=== PATIENT | female | born 1980 | race Caucasian/White ===

== ENCOUNTER 2016-04-10 10:48 | Emergency (ER) | payer MEDICAID ==
--- NOTE | 2016-04-10 10:56 | ER Document Report ---
ED Medical Screen (RME) - General Chief Complaint: Back Pain Stated Complaint: BACK PAIN Time seen by provider: 10:53 Mode of Arrival: Wheelchair Information source: Patient Notes: 36-year-old female presents to ED for low back pain. She states she has a history of spina bifida and she's having back pain and pelvic pain started this morning. She says she normally has some pain but this is totally different and she cannot move her legs like she supposed to. She states she supposed to go to a specialist at [facility] for her spina bifida. She states she's been on Xanax for over 6 years and she has not had any since the end of February and she just feels horrible. Last menstrual period 04/10/2016 I have greeted and performed a rapid initial assessment of this patient. A comprehensive ED assessment and evaluation of the patient, analysis of test results and completion of medical decision making process will be conducted by an additional ED providers. TRAVEL OUTSIDE OF THE [place] IN LAST 30 DAYS: No - Related Data Allergies/Adverse Reactions: No Known Allergies Allergy (Verified 06/04/14 12:44) Past Medical History Neurological Medical History: Reports: Hx Migraine Renal/ Medical History: Reports: Hx Ovarian Cysts Psychiatric Medical History: Reports: Hx Anxiety Past Surgical History: Reports: Hx Vascular Surgery - brain angiogram - Immunizations Immunizations up to date: Yes Hx Diphtheria, Pertussis, Tetanus Vaccination: Yes - 2013 Physical Exam - Vital signs Vitals: Temp Pulse Resp BP Pulse Ox 98.4 F 92 20 144/103 H 96 04/10/16 10:52 04/10/16 10:52 04/10/16 10:52 04/10/16 10:52 04/10/16 10:52 Course - Vital Signs Vital signs: Temp Pulse Resp BP Pulse Ox 98.4 F 92 20 144/103 H 96 04/10/16 10:52 04/10/16 10:52 04/10/16 10:52 04/10/16 10:52 04/10/16 10:52
[2016-04-10] MEDS ORDERED: OXYCODONE-ACETAMINOPHEN 5-325 MG TABLET PO ONE (10:58)
--- NOTE | 2016-04-10 11:33 | ER Document Report ---
ED General - General Chief Complaint: Back Pain Stated Complaint: BACK PAIN Time seen by provider: 11:31 Mode of Arrival: Wheelchair Notes: This is a 36-year-old female with a history of spina bifida and spinal cyst that presents today with hip and bilateral leg pain. She states that at 0545 this morning the patient woke up with this pain. She says that the pain starts in the hip and shoots down to the ankles and both legs. 10 out of 10 pain constant. She was found to have a meningococcal cyst [address] José that measured 4.8 cm. She denies bowel or bladder dysfunction or any injury. She sees Dr. Shukla, who is a surgeon and Dr. Moss who is her primary care. She sees a spinal surgeon in 2 weeks at [facility] for evaluation of her spinal cyst. She is currently on her period. TRAVEL OUTSIDE OF THE [place] IN LAST 30 DAYS: No - Related Data Allergies/Adverse Reactions: No Known Allergies Allergy (Verified 04/10/16 10:56) Home Medications: Current Home Medications Alprazolam [Alprazolam] 2 mg PO DAILY 04/10/16 [History] Tramadol HCl [Tramadol HCl] 100 mg PO Q6H PRN MDD 6 per day 04/10/16 [History] Past Medical History - General Information source: Patient - Social History Smoking Status: Never Smoker Chew tobacco use (# tins/day): No Frequency of alcohol use: None Drug Abuse: None Family History: Arthritis, CVA, Hypertension, Malignancy Patient has suicidal ideation: No Patient has homicidal ideation: No Neurological Medical History: Reports: Hx Migraine Renal/ Medical History: Reports: Hx Ovarian Cysts. Denies: Hx Peritoneal Dialysis Psychiatric Medical History: Reports: Hx Anxiety Past Surgical History: Reports: Hx Vascular Surgery - brain angiogram - Immunizations Immunizations up to date: Yes Hx Diphtheria, Pertussis, Tetanus Vaccination: Yes - 2013 Review of Systems - Review of Systems Constitutional: No symptoms reported. denies: Chills, Fever EENT: No symptoms reported Cardiovascular: No symptoms reported Respiratory: No symptoms reported Gastrointestinal: No symptoms reported Genitourinary: No symptoms reported - She urinated this morning prior to arrival. Denies any accidents or bladder retention. Female Genitourinary: Last menstrual period - Today is day 1 Musculoskeletal: See HPI Skin: No symptoms reported Hematologic/Lymphatic: No symptoms reported Neurological/Psychological: No symptoms reported Physical Exam - Vital signs Vitals: Temp Pulse Resp BP Pulse Ox 98.4 F 92 20 144/103 H 96 04/10/16 10:52 04/10/16 10:52 04/10/16 10:52 04/10/16 10:52 04/10/16 10:52 - General General appearance: Anxious In distress: None - HEENT Head: Normocephalic, Atraumatic - Respiratory Respiratory status: No respiratory distress Chest status: Nontender Breath sounds: Normal. No: Rales, Rhonchi, Stridor, Wheezing - Cardiovascular Rhythm: Regular Heart sounds: Normal auscultation - Abdominal Inspection: Normal Bowel sounds: Normal Tenderness: Tender - Diffuse abdominal discomfort. Denies pain. - Rectal Tenderness: No Hemorrhoids: None - No external or internal hemorrhoids felt or seen on examination Notes: Patient has normal rectal tone. She was able to squeeze my fingers. Exam was chaperoned by her nurse. - Back Back: Normal. No: CVA tenderness - Extremities General upper extremity: Normal inspection, Normal ROM General lower extremity: Normal inspection, Nontender, Normal ROM, Normal strength - Neurological Cognition: Normal. No: Confused Sensory: Normal Knee - Reflex grade: 3 = Increased - Patient does not have any clonus bilaterally. +3 patellar reflex bilaterally. - Psychological Associated symptoms: Normal affect, Normal mood - Skin Skin Temperature: Warm Skin Moisture: Dry Skin Color: Normal Course - Re-evaluation Re-evalutation: 04/10/16 12:45 Rectal exam was done and patient had normal rectal tone. Examination was chaperoned by her nurse. 04/10/16 13:26 Dr. Moss was consulted. He stated that the patient was last seen by him in . She complained of anxiety and low back pain during that visit and was given tramadol. 04/10/16 15:32 Imaging studies from [facility] was obtained. MRI lumbar spine without contrast conducted on 09/16/2015 at [facility]. Dr. 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 2) minimal lumbar spondylosis 3) moderately to severely limited study due to excessive motion. 04/10/16 16:46 Imaging was shared with the patient. She was given multiple opportunities to ask questions. Patient asked that I refill her Xanax medication. I told her that I would not since she has a chronic back pain problem and anxiety. She was advised to follow-up with primary care physician. She stated that she has a appointment at [facility] concerning her back. - Vital Signs Vital signs: Temp Pulse Resp BP Pulse Ox 98.1 F 73 20 123/68 97 04/10/16 17:09 04/10/16 17:09 04/10/16 11:10 04/10/16 17:09 04/10/16 17:09 - Laboratory Result Diagrams: 04/10/16 12:00 04/10/16 12:00 Laboratory results interpreted by me: 04/10/16 04/10/16 12:00 12:00 WBC 10.6 H RDW 14.8 H Chloride 108 H Discharge - Discharge Clinical Impression: Back pain Qualifiers: Back pain location: low back pain Chronicity: chronic Back pain laterality: bilateral Sciatica presence: unspecified whether sciatica present Qualified Code (s): M54.5 - Low back pain Condition: Good Disposition: HOME, SELF-CARE Additional Instructions: Return to the emergency department if symptoms worsen such as loss of sensation to the lower extremity, loss of motor function, etc. Follow-up with primary care physician as soon as possible. Referrals: LETITIA MOSS MD [Primary Care Provider] - Follow up as needed
[2016-04-10 12:18] LABS: ABSOLUTE BASOPHILS # (AUTO) 0.1 10^3/uL (0.0-0.2); ABSOLUTE EOSINOPHILS # (AUTO) 0.1 10^3/uL (0.0-0.6); ABSOLUTE LYMPHOCYTES (AUTO) 1.7 10^3/uL (0.5-4.7); ABSOLUTE MONOCYTES (AUTO) 0.6 10^3/uL (0.1-1.4); BASOPHILS % (AUTO) 1.1 % (0-2); EOSINOPHILS % (AUTO) 1.1 % (0-6); HEMATOCRIT 40.8 % (36.0-47.0); HEMOGLOBIN 13.5 g/dL (12.0-15.5); HGB HCT DIFFERENCE -0.3; LYMPHOCYTES % (AUTO) 16.4 % (13-45); MEAN CORPUSCULAR HEMOGLOBIN 29.3 pg (27.0-33.4); MEAN CORPUSCULAR HGB CONC 33.1 g/dL (32.0-36.0); MEAN CORPUSCULAR VOLUME 88 fl (80-97); RED BLOOD COUNT 4.61 10^6/uL (3.72-5.28); RED CELL DISTRIBUTION WIDTH 14.8 % (11.5-14.0); SEGMENTED NEUTROPHILS % (AUTO) 75.4 % (42-78); WHITE BLOOD COUNT 10.6 10^3/uL (4.0-10.5)
[2016-04-10 12:36] LABS: APPEARANCE,URINE CLEAR; BILIRUBIN,URINE NEGATIVE (NEGATIVE); GLUCOSE, URINE NEGATIVE (NEGATIVE); KETONES,URINE NEGATIVE (NEGATIVE); LEUKOCYTE ESTERASE,URINE NEGATIVE (NEGATIVE); NITRITE,URINE NEGATIVE (NEGATIVE); PROTEIN,URINE NEGATIVE (NEGATIVE); URINE SPECIFIC GRAVITY 1.012; UROBILINOGEN,URINE NEGATIVE mg/dL (<2.0)
[2016-04-10 12:37] LABS: ALANINE AMINOTRANSFERASE 24 U/L (9-52); ALBUMIN 3.8 g/dL (3.5-5.0); ALKALINE PHOSPHATASE 63 U/L (38-126); ANION GAP 10 (5-19); ASPARTATE AMINO TRANSFERASE 21 U/L (14-36); BILIRUBIN,TOTAL 0.4 mg/dL (0.2-1.3); BLOOD UREA NITROGEN 14 mg/dL (7-20); CALCIUM 9.4 mg/dL (8.4-10.2); CARBON DIOXIDE 22 mmol/L (22-30); CHLORIDE 108 mmol/L (98-107); GLUCOSE 97 mg/dL (75-110); POTASSIUM 4.4 mmol/L (3.6-5.0); TOTAL PROTEIN 7.2 g/dL (6.3-8.2)
[2016-04-10] MEDS ORDERED: HYDROCODONE/ACETAMINOPHEN 10-325 MG TABLET PO ONE (13:30)
[2016-04-10] MEDS ORDERED: TRAMADOL HCL 50 MG TABLET PO ONE (14:15)
[2016-04-10] MEDS ORDERED: PROMETHAZINE HCL 25 MG TABLET PO ONE (14:15)
[2016-04-10] MEDS ORDERED: HYDROCODONE/ACETAMINOPHEN 5-325 MG 6 TAB/DSPK PO PRN (16:45)
[2016-04-10 17:18] VITALS: BP 123/68
== END 2016-04-10 17:18 | disposition home or self-care (01) ==
LOC: ER 10:48
DX: Q05.9 Spina bifida, unspecified (principal); M54.5 Low back pain; G89.29 Other chronic pain; M25.559 Pain in unspecified hip; M79.604 Pain in right leg; M79.605 Pain in left leg; F41.9 Anxiety disorder, unspecified; R10.817 Generalized abdominal tenderness
CPT/HCPCS: 99284; 36415; 85025; 81025; 80053; 81001; 72148; J3490

== ENCOUNTER 2016-07-07 11:48 | Emergency (ER) | payer MEDICAID ==
[2016-07-07] MEDS ORDERED: ONDANSETRON HCL INJ/PF 4 MG/2 ML SDV IV ONE (12:35)
[2016-07-07] MEDS ORDERED: NORMAL SALINE 1000 ML 1,000 ML IV ONE ×2 (12:36→15:51)
--- NOTE | 2016-07-07 12:39 | ER Document Report ---
ED Medical Screen (RME) - General Chief Complaint: Abdominal Pain Stated Complaint: ABDOMINAL PAIN Notes: Patient says that she's experienced pain across the upper abdomen for the past 3 days. Last night, she began having vomiting and diarrhea. Says that she has had about 10 episodes of diarrhea and that she began passing bright red blood with her diarrhea stools last night. Remains nauseated and sick on her stomach now. Has never had any gastrointestinal diseases and never had bleeding with bowel movements. No fevers. No abdominal surgeries. TRAVEL OUTSIDE OF THE [place] IN LAST 30 DAYS: No - Related Data Allergies/Adverse Reactions: No Known Allergies Allergy (Verified 07/07/16 11:51) Past Medical History Neurological Medical History: Reports: Hx Migraine Renal/ Medical History: Reports: Hx Ovarian Cysts. Denies: Hx Peritoneal Dialysis Psychiatric Medical History: Reports: Hx Anxiety Past Surgical History: Reports: Hx Vascular Surgery - brain angiogram - Immunizations Immunizations up to date: Yes Hx Diphtheria, Pertussis, Tetanus Vaccination: Yes - 2013 Physical Exam - Vital signs Vitals: Temp Pulse Resp BP Pulse Ox 98.3 F 108 H 20 108/74 100 07/07/16 11:54 07/07/16 11:54 07/07/16 11:54 07/07/16 11:54 07/07/16 11:54 Course - Vital Signs Vital signs: Temp Pulse Resp BP Pulse Ox 98.3 F 108 H 20 108/74 100 07/07/16 11:54 07/07/16 11:54 07/07/16 11:54 07/07/16 11:54 07/07/16 11:54
[2016-07-07 13:21] LABS: ABSOLUTE BASOPHILS # (AUTO) 0.1 10^3/uL (0.0-0.2); ABSOLUTE EOSINOPHILS # (AUTO) 0.1 10^3/uL (0.0-0.6); ABSOLUTE LYMPHOCYTES (AUTO) 1.2 10^3/uL (0.5-4.7); ABSOLUTE MONOCYTES (AUTO) 0.5 10^3/uL (0.1-1.4); ABSOLUTE NEUT (AUTO) 15.3 10^3/uL (1.7-8.2); BASOPHILS % (AUTO) 0.5 % (0-2); EOSINOPHILS % (AUTO) 0.4 % (0-6); HEMATOCRIT 47.5 % (36.0-47.0); HEMOGLOBIN 16.3 g/dL (12.0-15.5); HGB HCT DIFFERENCE 1.4; LYMPHOCYTES % (AUTO) 6.7 % (13-45); MEAN CORPUSCULAR HEMOGLOBIN 29.8 pg (27.0-33.4); MEAN CORPUSCULAR HGB CONC 34.4 g/dL (32.0-36.0); MEAN CORPUSCULAR VOLUME 87 fl (80-97); MONOCYTES % (AUTO) 2.9 % (3-13); RED BLOOD COUNT 5.48 10^6/uL (3.72-5.28); RED CELL DISTRIBUTION WIDTH 14.3 % (11.5-14.0); SEGMENTED NEUTROPHILS % (AUTO) 89.5 % (42-78); WHITE BLOOD COUNT 17.1 10^3/uL (4.0-10.5)
[2016-07-07] MEDS ORDERED: MORPHINE SULFATE 10 MG/ML INJ IV ONE (13:30)
--- NOTE | 2016-07-07 13:31 | ER Document Report ---
ED GI/ - General Mode of Arrival: Ambulatory Information source: Patient TRAVEL OUTSIDE OF THE [place] IN LAST 30 DAYS: No - HPI Patient complains to provider of: Abdominal pain Onset: Other - 07/05/2016 Timing/Duration: Gradual, Persistent Location: Epigastric Associated symptoms: Diarrhea, Hard stool, Nausea, Sweaty, Vomiting <TOYA CASTILLO - Last Filed: 07/07/16 13:34> <POWER CARMONA - Last Filed: 07/07/16 17:41> - General Chief Complaint: Abdominal Pain Stated Complaint: ABDOMINAL PAIN Notes: Patient is a 36-year-old female with history of spina bifida presenting to the emergency department with concerns of 2 days of abdominal pain with associated diarrhea and vomiting. Patient states that last night she took a laxative and subsequently became nauseous and began vomiting. Then patient reports having a very solid bowel movement followed by diarrhea, followed by mucus containing bright red blood. Patient also states she has been having cold sweats states that her abdominal pain is mostly epigastric, but she is very tender all over, which she believes is due to the diarrhea and vomiting. (TOYA CASTILLO) - Related Data Allergies/Adverse Reactions: No Known Allergies Allergy (Verified 07/07/16 11:51) Past Medical History - General Information source: Patient, [facility] Records - Social History Smoking Status: Current Every Day Smoker Frequency of alcohol use: None Drug Abuse: None Family History: Arthritis, CVA, Hypertension, Malignancy Patient has suicidal ideation: No Patient has homicidal ideation: No Neurological Medical History: Reports: Hx Migraine Renal/ Medical History: Reports: Hx Ovarian Cysts. Denies: Hx Peritoneal Dialysis Psychiatric Medical History: Reports: Hx Anxiety Past Surgical History: Reports: Hx Vascular Surgery - brain angiogram - Immunizations Immunizations up to date: Yes Hx Diphtheria, Pertussis, Tetanus Vaccination: Yes - 2013 <TOYA CASTILLO - Last Filed: 07/07/16 13:34> Review of Systems - Review of Systems Constitutional: No symptoms reported EENT: No symptoms reported Cardiovascular: No symptoms reported Respiratory: No symptoms reported Gastrointestinal: See HPI, Abdominal pain, Diarrhea, Nausea, Vomiting, Rectal bleeding Genitourinary: No symptoms reported Female Genitourinary: No symptoms reported Musculoskeletal: No symptoms reported Skin: No symptoms reported Hematologic/Lymphatic: No symptoms reported Neurological/Psychological: No symptoms reported -: Yes All other systems reviewed and negative <TOYA CASTILLO - Last Filed: 07/07/16 13:34> Physical Exam <TOYA CASTILLO - Last Filed: 07/07/16 13:34> <POWER CARMONA - Last Filed: 07/07/16 17:41> - Vital signs Vitals: Temp Pulse Resp BP Pulse Ox 98.3 F 108 H 20 108/74 100 07/07/16 11:54 07/07/16 11:54 07/07/16 11:54 07/07/16 11:54 07/07/16 11:54 - Notes Notes: GENERAL: VS as per nursing doc. Well-appearing, well-nourished and in no acute distress. HEAD: Atraumatic, normocephalic. EYES: Pupils equal round and reactive to light, extraocular movements intact, sclera anicteric, no conjunctival injection or discharge. ENT: Nares patent, oropharynx clear without exudates, moist mucous membranes. NECK: Normal range of motion, supple without lymphadenopathy. LUNGS: Breath sounds clear to auscultation bilaterally and equal. No wheezes rales or rhonchi. HEART: Regular rate and rhythm without murmurs. ABDOMEN: Soft, non-tender, normoactive bowel sounds. no guarding, no rebound. No masses appreciated. No Clothier sign. : no gross blood, no hemorrhoids or fissures noted. No palpable mass. No significant discomfort BACK: No CVA tenderness. EXTREMITIES: Normal range of motion, no calf tenderness, no edema. NEUROLOGICAL: Cranial nerves grossly intact. Normal speech. Normal sensory and motor exams. No gross cerebellar abnormalities. PSYCH: Normal mood, normal affect. SKIN: Warm, dry, normal turgor, no lesions noted. (WENDYPOWER) Course - Laboratory Result Diagrams: 07/07/16 13:07 07/07/16 13:07 <TOYA CASTILLO - Last Filed: 07/07/16 13:34> - Laboratory Result Diagrams: 07/07/16 13:07 07/07/16 15:20 <WENDYPOWER DOSHI - Last Filed: 07/07/16 17:41> - Re-evaluation Re-evalutation: 07/07/16 17:32 I went to recheck the patient and she is sitting up comfortably smiling. Reviewed labs and CT results with her and family. We discussed differential diagnosis and elevated white blood cell count. She is comfortable with discharge and return to emergency department warnings including fever, repetitive vomiting. As she was passing blood with mucus we would have to consider an infectious etiology for the diarrhea that she had. We'll place her on Cipro as well have her take [id number] Prilosec. PRESCRIBE her some pain medication and Phenergan as well. On reexam she only has mild tenderness which is more in the epigastrium. (POWER CARMONA) - Vital Signs Vital signs: Temp Pulse Resp BP Pulse Ox 98.3 F 69 18 129/59 H 97 07/07/16 16:09 07/07/16 16:09 07/07/16 16:09 07/07/16 16:09 07/07/16 16:09 - Laboratory Laboratory results interpreted by me: 07/07/16 07/07/16 07/07/16 13:07 15:20 16:38 WBC 17.1 H RBC 5.48 H Hgb 16.3 H Hct 47.5 H RDW 14.3 H Seg Neutrophils % 89.5 H Lymphocytes % 6.7 L Monocytes % 2.9 L Absolute Neutrophils 15.3 H Potassium 5.1 H AST 43 H Total Protein 8.3 H Urine Ketones TRACE H Urine Ascorbic Acid 40 H Discharge <TOYA CASTILLO - Last Filed: 07/07/16 13:34> <POWER CARMONA - Last Filed: 07/07/16 17:41> - Discharge Clinical Impression: Abdominal pain, Diarrhea Condition: Good Disposition: HOME, SELF-CARE Instructions: Abdominal Pain ([facility]), Antinausea Medication ([facility]) Additional Instructions: Please return for worsening or concern. Follow-up on Saturday with her primary care physician or return to the emergency department if needed. Use over-the- counter Prilosec once daily as directed. Diarrhea means frequent, watery stools. There are many causes. Any problem that keeps the intestinal tract from absorbing water from the stool can lead to diarrhea. A sudden new diarrhea problem is usually caused by a virus, food sensitivity, toxic bacteria, or drugs. In this case, we expect the problem to go away soon. Testing is done only if you seem seriously ill from the diarrhea. If you have chronic diarrhea, or diarrhea that keeps coming back, we need to find out why. Chronic diarrhea can be due to inflammation of the bowels such as Crohn's disease or ulcerative colitis, food sensitivity such as intolerance to lactose or wheat protein, irritable bowel syndrome, and other problems. If your diarrhea is a significant problem but it's not clear why you have it, we' ll refer you to a specialist for further testing. During an episode of diarrhea, drink small amounts (two to six ounces) of clear liquids (soft drinks, sport drinks, herb teas, broth, etc). Take fluids frequently to prevent dehydration. It's usually not a problem to take mild anti- diarrhea medication such as Kaopectate or Pepto-Bismol. As the diarrhea eases, advance to small amounts of bland food (mashed potato, toast) for 24 hours. Call the physician if blood appears in your vomit or stool, if vomiting lasts longer than 24 hours, if the abdominal pain worsens or becomes localized to one area, if you develop high fever, or if you become lightheaded and weak. You have been diagnosed with abdominal pain.~ Currently, there is no identified emergent medical condition.~ Though most causes of abdominal pain resolve naturally with time, please return immediately if you are worsening, develop fever > 100.5, or for other concern. Push non-caffeinated fluids.~ Avoid stomach irritants but may use Tylenol if needed.~ Start initially with clear liquids then advance to bland diet as tolerated.~ Return for worsening or concern. All medications prescribed should be taken as directed on the label. Any medication may cause side effects. If an adverse effect occurs, notify your doctor or return to the emergency room.~ Narcotics or sedatives may cause drowsiness, therefore, you should not drive, operate machinery, climb ladders, etc. Alcohol should never be used while taking these medications.~ Pain medications also can cause significant constipation so you should use a stool softener if you are using any significant amount.~ Antibiotics should be taken until the entire amount is finished. Unless specifically told otherwise, continue any routine medicines like blood pressure pills, hormones, etc. Be sure you have informed us about any medicines you are taking and any allergies. Also, ensure you let your pharmacy and physician know of any medication changes or additional medications during the next business day to help keep records consistent and ensure your medication safety. Prescriptions: Hydrocodone/Acetaminophen [Pomerene 5-325 mg Tablet] 1 tab PO Q4HP PRN #14 tablet PRN Reason: For Pain Ciprofloxacin HCl [Cipro 500 mg Tablet] 500 mg PO BID #10 tablet Promethazine HCl [Phenergan 25 mg Tablet] 1 - 2 tab PO Q6H PRN #15 tablet PRN Reason: Forms: Smoking Cessation Education Scribe Attestation: 07/07/16 17:40 I personally performed the services described in the documentation, reviewed and edited the documentation which was dictated to the scribe in my presence, and it accurately records my words and actions. (POWER CARMONA) Scribe Documentation - Scribe Written by Leonardo:: Toya Castillo 07/07/2016 [id number] acting as scribe for :: Wendy <TOYA CASTILLO - Last Filed: 07/07/16 13:34>
[2016-07-07 13:48] LABS: PROTHROMBIN TIME 11.9 SEC (11.4-15.4)
[2016-07-07] MEDS ORDERED: HYDROMORPHONE HCL INJ/PF 2 MG/ML AMPULE IV ONE (14:20)
[2016-07-07] MEDS ORDERED: PROMETHAZINE HCL INJ 25 MG/1 ML VIAL IM ONE (14:20)
[2016-07-07] MEDS ORDERED: PROMETHAZINE HCL INJ 50 MG/1 ML VIAL IM ONE (14:55)
[2016-07-07 16:16] LABS: ALANINE AMINOTRANSFERASE 43 U/L (9-52); ALBUMIN 4.8 g/dL (3.5-5.0); ALKALINE PHOSPHATASE 77 U/L (38-126); ANION GAP 15 (5-19); ASPARTATE AMINO TRANSFERASE 43 U/L (14-36); BILIRUBIN,DIRECT 0.1 mg/dL (0.0-0.4); BILIRUBIN,TOTAL 0.3 mg/dL (0.2-1.3); BLOOD UREA NITROGEN 16 mg/dL (7-20); CARBON DIOXIDE 22 mmol/L (22-30); CHLORIDE 105 mmol/L (98-107); CREATININE RESULT 0.64 mg/dL (0.52-1.25); GLUCOSE 110 mg/dL (75-110); LIPASE 60.6 U/L (23-300); POTASSIUM 5.1 mmol/L (3.6-5.0); SODIUM 141.9 mmol/L (137-145); TOTAL PROTEIN 8.3 g/dL (6.3-8.2)
[2016-07-07 16:56] LABS: APPEARANCE,URINE SLIGHTLY-CLOUDY; BILIRUBIN,URINE NEGATIVE (NEGATIVE); GLUCOSE, URINE NEGATIVE (NEGATIVE); KETONES,URINE TRACE mg/dL (NEGATIVE); LEUKOCYTE ESTERASE,URINE NEGATIVE (NEGATIVE); NITRITE,URINE NEGATIVE (NEGATIVE); PROTEIN,URINE NEGATIVE (NEGATIVE); URINE SPECIFIC GRAVITY 1.024; UROBILINOGEN,URINE NEGATIVE mg/dL (<2.0)
[2016-07-07] MEDS ORDERED: HYDROCODONE/ACETAMINOPHEN 10-325 MG TABLET PO ONE (17:34)
[2016-07-07] MEDS ORDERED: PROMETHAZINE HCL 25 MG TABLET PO ONE (17:34)
[2016-07-07] MEDS ORDERED: PANTOPRAZOLE SODIUM 40 MG VIAL IV ONE (17:34)
[2016-07-07] MEDS ORDERED: CIPROFLOXACIN HCL 500 MG TABLET PO ONE (17:35)
[2016-07-07 17:54] VITALS: BP 115/63
== END 2016-07-07 17:54 | disposition home or self-care (01) ==
LOC: ER 11:48
DX: R10.9 Unspecified abdominal pain (principal); R19.7 Diarrhea, unspecified; R11.10 Vomiting, unspecified; R10.13 Epigastric pain; F17.200 Nicotine dependence, unspecified, uncomplicated
CPT/HCPCS: 99284; 96372; 96361; 96374; 96375; 36415; 83690; 84703; 85025; 85610; 80053; 81001; 74177; J3490 ×2; J2270; J1170; S0164; J2550; J2405; J7030

== ENCOUNTER 2016-11-05 13:21 | Emergency (ER) | payer MEDICAID ==
[2016-11-05 13:40] VITALS: BP 128/85
[2016-11-05] MEDS ORDERED: AMOXICILLIN TR/POT CLAVULANATE 500-125 MG TAB PO ONE (14:06)
[2016-11-05] MEDS ORDERED: IBUPROFEN 800 MG TABLET PO ONE (14:06)
--- NOTE | 2016-11-05 14:15 | ER Document Report ---
ED Animal Bite - General Chief Complaint: Cat Bite Stated Complaint: CAT BITE/RIGHT ARM Time Seen by Provider: 11/05/16 13:44 Mode of Arrival: Ambulatory Information source: Patient Notes: 36-year-old female presents to ED for complaint of Bite to the right arm and wrist. She states she was bit on Saturday. She states there was a stray cat but the animal control is caught the cat and told her to come to the ED to be evaluated. TRAVEL OUTSIDE OF THE [place] IN LAST 30 DAYS: No - HPI Location of injury: RUE Severity of injury: Scratched Onset: Other - Saturday Quality of pain: Sharp, Throbbing Pain Level: 5 Severity: Severe Context of attack: "Unprovoked" attack Type of animal: Cat Appearance of animal: Appeared well Animal's immunizations: Unknown Animal captured or known: Yes Animal control notified: Yes - Related Data Allergies/Adverse Reactions: No Known Allergies Allergy (Verified 07/07/16 11:51) Past Medical History - General Information source: Patient - Social History Smoking Status: Current Every Day Smoker Cigarette use (# per day): Yes - Half a pack a day Chew tobacco use (# tins/day): No Smoking Education Provided: Yes - Less than 2 minutes Frequency of alcohol use: None Drug Abuse: None Occupation: 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 Denies: Hx Cerebrovascular Accident - Spina bifida with meningococcal cyst causing her to have difficulty walking Endocrine Medical History: Reports: None Renal/ Medical History: Reports: Hx Ovarian Cysts. Denies: Hx Peritoneal Dialysis Malignancy Medical History: Reports: None GI Medical History: Reports: None Musculoskeltal Medical History: Reports None Skin Medical History: Reports None Psychiatric Medical History: Reports: Hx Anxiety Traumatic Medical History: Reports: None Infectious Medical History: Reports: None Past Surgical History: Reports: Hx Vascular Surgery - brain angiogram - Immunizations Immunizations up to date: Yes Hx Diphtheria, Pertussis, Tetanus Vaccination: Yes - 2013 Review of Systems - Review of Systems Constitutional: No symptoms reported EENT: No symptoms reported Cardiovascular: No symptoms reported Respiratory: No symptoms reported Gastrointestinal: No symptoms reported Genitourinary: No symptoms reported Female Genitourinary: No symptoms reported Musculoskeletal: No symptoms reported Skin: Other - Cat bite to the right hand and wrist and arm with redness and swelling tenderness Hematologic/Lymphatic: No symptoms reported Neurological/Psychological: No symptoms reported Physical Exam - Vital signs Vitals: Temp Pulse Resp BP Pulse Ox 99.0 F 78 16 128/85 H 97 11/05/16 13:37 11/05/16 13:37 11/05/16 13:37 11/05/16 13:37 11/05/16 13:37 Interpretation: Normal - General General appearance: Appears well, Alert - HEENT Head: Normocephalic, Atraumatic Eyes: Normal Pupils: PERRL - Respiratory Respiratory status: No respiratory distress Chest status: Nontender Breath sounds: Normal Chest palpation: Normal - Cardiovascular Rhythm: Regular Heart sounds: Normal auscultation Murmur: No - Abdominal Inspection: Normal Distension: No distension Bowel sounds: Normal Tenderness: Nontender Organomegaly: No organomegaly - Back Back: Normal, Nontender - Extremities General upper extremity: Normal inspection, Nontender, Normal color, Normal ROM , Normal temperature General lower extremity: Normal inspection, Nontender, Normal color, Normal ROM , Normal temperature, Normal weight bearing. No: Litzy's sign - Neurological Neuro grossly intact: Yes Cognition: Normal Orientation: AAOx4 Karime Coma Scale Eye Opening: Spontaneous [place] Coma Scale Verbal: Oriented Kar[place] Coma Scale Motor: Obeys Commands [place] Coma Scale Total: 15 Speech: Normal Motor strength normal: LUE, RUE, LLE, RLE Sensory: Normal - Psychological Associated symptoms: Normal affect, Normal mood - Skin Skin Temperature: Warm Skin Moisture: Dry Skin Color: Normal Location of irregularity: Extremities - Cat bite to the right hand and wrist and arm with redness and swelling tenderness Irregularity with: Swelling, Tenderness, Warmth, Inflammation Course - Re-evaluation Re-evalutation: 11/05/16 14:40 Patient was treated with ibuprofen and Augmentin and sent home with prescription for Augmentin and instructed to follow-up with a hand specialist. - Vital Signs Vital signs: Temp Pulse Resp BP Pulse Ox 99.0 F 78 16 128/85 H 97 11/05/16 13:37 11/05/16 13:37 11/05/16 13:37 11/05/16 13:37 11/05/16 13:37 Discharge - Discharge Clinical Impression: Cat bite Qualifiers: Encounter type: initial encounter Qualified Code(s): W55.01XA - Bitten by cat, initial encounter Condition: Stable Disposition: HOME, SELF-CARE Additional Instructions: Animal Bites Animal bites are often heavily contaminated with bacteria. In spite of thorough cleansing and proper treatment, these wounds frequently become infected. Bite wounds of the hands are especially prone to complications. Bites are dressed, if possible. Large wounds may require suturing after internal cleansing. Because of infection risk, some large wounds must remain unstitched. Your doctor is trained to advise you on the best treatment for your bite. Call the doctor at once if the wound becomes red, swollen, warm, increasingly painful, or if it begins to drain. Danger signs also include red streaks up the involved extremity, swollen glands in the groin or under the arm , or fever and chills. The risk of rabies from domestic animals is very low. Bats, sick animals, and wild animals may expose you to rabies. The physician, or the health department, will inform you if you will need to receive the rabies vaccine. Augmentin Augmentin is a mixture of amoxicillin and clavulanate. Amoxicillin is a member of the penicillin family. It covers the germs likely to cause ear, bronchial, and urinary infections better than plain penicillin. The addition of clavulanate allows it to cover staph infections of the skin, as well as resistant cases of ear and sinus infections. Your physician has chosen Augmentin for you because of the special nature of your situation. Augmentin is best taken with meals. Nausea after taking the medication is rare, but can occur. Diarrhea can occur, particularly in small children. Vaginal yeast infections, and oral thrush in infants are also common. Contact your physician if these problems occur. Allergy to penicillins is common. If you have had an allergic reaction to any drug of the penicillin family, you should never take any other penicillin. Notify your doctor at once if you develop hives, shortness of breath, swelling, or faintness. Epsom Salt Soaks Soak the wound area in a container of warm epsom salt water. If you can't get the wound area into a bucket or ruiz, use a folded towel soaked in the epsom salt solution and apply to the area. Use clean hot tap water (about the temperature of a very warm bath), mixing in about one (1) teaspoon for every pint of water. Two gallon --> 16 teaspoons Epsom Salts One gallon --> 8 teaspoons Epsom Salts Two quarts --> 4 teaspoons Epsom Salts One quart --> 2 teaspoons Epsom Salts Soak the wound for about 20 minutes while gently moving it around in the water. Repeat this four (4) times a day. Ibuprofen Ibuprofen is an excellent, safe drug for pain control. In addition, it has potent antiinflammatory effects which are beneficial, especially in the treatment of injuries, arthritis, or tendonitis. It's best to take ibuprofen with food. Persons with ulcer disease or allergy to aspirin should notify their physician of this before taking ibuprofen. Take the medication exactly as prescribed. Don't take additional doses unless instructed to do so by your doctor. If you develop wheezing, shortness of breath, hives, faintness, stomach pain, vomiting, or dark black stools, return for re-evaluation at once. FOLLOW-UP CARE: If you have been referred to a physician for follow-up care, call the physician s office for an appointment as you were instructed or within the next two days. If you experience worsening or a significant change in your symptoms, notify the physician immediately or return to the Emergency Department at any time for re-evaluation. Prescriptions: Amox Tr/Potassium Clavulanate [Augmentin 875-125 Tablet] 1 tab PO BID 10 Days tablet Forms: Elevated Blood Pressure, Smoking Cessation Education Referrals: RADHA CAMERON DO [ACTIVE STAFF] - Follow up as needed
== END 2016-11-05 14:17 | disposition home or self-care (01) ==
LOC: ER 13:21
DX: S41.151A Open bite of right upper arm, initial encounter (principal); S61.451A Open bite of right hand, initial encounter; W55.01XA Bitten by cat, initial encounter; F17.210 Nicotine dependence, cigarettes, uncomplicated
CPT/HCPCS: 99283; J3490 ×2

== ENCOUNTER 2017-01-11 18:17 | Emergency (ER) | payer MEDICAID ==
[2017-01-11] MEDS ORDERED: OXYCODONE HCL IR 5 MG TABLET PO ONE (19:07)
[2017-01-11] MEDS ORDERED: PENICILLIN V POTASSIUM 500 MG TABLET PO ONE (19:07)
[2017-01-11] MEDS ORDERED: LIDOCAINE 2% VISCOUS SOLN 20 ML UDCUP PO ONE (19:07)
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
[2017-01-11 20:19] VITALS: BP 133/79
== END 2017-01-11 20:19 | disposition home or self-care (01) ==
LOC: ER 18:17
DX: K02.9 Dental caries, unspecified (principal); K08.89 Other specified disorders of teeth and supporting structures; F17.210 Nicotine dependence, cigarettes, uncomplicated; Z71.6 Tobacco abuse counseling
CPT/HCPCS: 99282; J3490 ×3

== ENCOUNTER 2017-02-26 15:44 | Observation (INO) | payer MEDICAID ==
[2017-02-26] MEDS ORDERED: KETOROLAC TROMETHAMINE INJ/PF 30 MG/1 ML SDV IV ONE (16:22)
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
[2017-02-26 17:28] LABS: ABSOLUTE BASOPHILS # (AUTO) 0.2 10^3/uL (0.0-0.2); ABSOLUTE EOSINOPHILS # (AUTO) 0.2 10^3/uL (0.0-0.6); ABSOLUTE LYMPHOCYTES (AUTO) 2.4 10^3/uL (0.5-4.7); ABSOLUTE MONOCYTES (AUTO) 0.9 10^3/uL (0.1-1.4); ABSOLUTE NEUT (AUTO) 5.6 10^3/uL (1.7-8.2); EOSINOPHILS % (AUTO) 2.4 % (0-6); HEMATOCRIT 46.6 % (36.0-47.0); HEMOGLOBIN 15.9 g/dL (12.0-15.5); LYMPHOCYTES % (AUTO) 25.7 % (13-45); MEAN CORPUSCULAR HEMOGLOBIN 29.6 pg (27.0-33.4); MEAN CORPUSCULAR HGB CONC 34.2 g/dL (32.0-36.0); MEAN CORPUSCULAR VOLUME 87 fl (80-97); MONOCYTES % (AUTO) 9.4 % (3-13); PLATELET COUNT 377 10^3/uL (150-450); RED BLOOD COUNT 5.37 10^6/uL (3.72-5.28); RED CELL DISTRIBUTION WIDTH 14.4 % (11.5-14.0); SEGMENTED NEUTROPHILS % (AUTO) 60.5 % (42-78); TOTAL CELLS COUNTED % (AUTO) 100 %; WHITE BLOOD COUNT 9.3 10^3/uL (4.0-10.5)
[2017-02-26 17:38] LABS: ALANINE AMINOTRANSFERASE 105 U/L (9-52); ALBUMIN 4.8 g/dL (3.5-5.0); ALKALINE PHOSPHATASE 154 U/L (38-126); ANION GAP 14 (5-19); ASPARTATE AMINO TRANSFERASE 42 U/L (14-36); BILIRUBIN,DIRECT 0.5 mg/dL (0.0-0.4); BILIRUBIN,TOTAL 0.9 mg/dL (0.2-1.3); BLOOD UREA NITROGEN 9 mg/dL (7-20); CALCIUM 9.7 mg/dL (8.4-10.2); CARBON DIOXIDE 25 mmol/L (22-30); CHLORIDE 102 mmol/L (98-107); GLUCOSE 91 mg/dL (75-110); POTASSIUM 4.1 mmol/L (3.6-5.0); SODIUM 141.1 mmol/L (137-145); TOTAL PROTEIN 9.6 g/dL (6.3-8.2)
[2017-02-26 17:56] LABS: APPEARANCE,URINE SLIGHTLY-CLOUDY; BILIRUBIN,URINE NEGATIVE (NEGATIVE); COLOR,URINE AMBER; GLUCOSE, URINE NEGATIVE (NEGATIVE); KETONES,URINE NEGATIVE (NEGATIVE); LEUKOCYTE ESTERASE,URINE TRACE (NEGATIVE); NITRITE,URINE NEGATIVE (NEGATIVE); PROTEIN,URINE NEGATIVE (NEGATIVE); URINE SPECIFIC GRAVITY 1.018
[2017-02-26 18:01] LABS: URINE AMPHETAMINES SCREEN NEGATIVE; URINE BARBITURATES SCREEN NEGATIVE; URINE BENZODIAZEPINES SCREEN NEGATIVE; URINE COCAINE SCREEN NEGATIVE; URINE MARIJUANA (THC) SCREEN UNCONFIRMED POSITIVE; URINE METHADONE SCREEN NEGATIVE; URINE PHENCYCLIDINE SCREEN NEGATIVE
[2017-02-26] MEDS ORDERED: ONDANSETRON HCL INJ/PF 4 MG/2 ML SDV IV PRN (18:06)
[2017-02-26] MEDS ORDERED: MORPHINE SULFATE 10 MG/ML INJ IV PRN (18:06)
[2017-02-26] MEDS ORDERED: OXYCODONE-ACETAMINOPHEN 5-325 MG TABLET PO PRN (18:06)
[2017-02-26] MEDS ORDERED: DEXTROSE 40% GEL 15 GM TUBE PO PRN ×2 (18:12)
[2017-02-26] MEDS ORDERED: GLUCAGON,HUMAN RECOMB 1 MG INJ SUBCUT PRN (18:12)
[2017-02-26] MEDS ORDERED: DEXTROSE 50%-WATER 25 GM/50 ML DISP.SYRIN IV PRN ×2 (18:12)
--- NOTE | 2017-02-26 18:35 | RADIOLOGY REPORT (SQ) ---
EXAM DESCRIPTION: CHEST PA/LAT COMPLETED DATE/TIME: 02/26/2017 6:22 pm REASON FOR STUDY: r/o foreign body COMPARISON: None. EXAM PARAMETERS: NUMBER OF VIEWS: two views TECHNIQUE: Digital Frontal and Lateral radiographic views of the chest acquired. RADIATION DOSE: NA LIMITATIONS: none FINDINGS: LUNGS AND PLEURA: No opacities, masses or pneumothorax. No pleural effusion. MEDIASTINUM AND HILAR STRUCTURES: No masses or contour abnormalities. HEART AND VASCULAR STRUCTURES: Heart normal size. No evidence for failure. BONES: No acute findings. HARDWARE: None in the chest. OTHER: No other significant finding. No radiopaque foreign object visualized. IMPRESSION: NO SIGNIFICANT RADIOGRAPHIC FINDING IN THE CHEST. NO RADIOPAQUE FOREIGN OBJECT VISUALIZ ED. TECHNICAL DOCUMENTATION: JOB ID: [id number] [employer],- All Rights Reserved
[2017-02-26] MEDS ORDERED: ALPRAZOLAM 0.5 MG TABLET PO ONE (19:21)
[2017-02-27 06:02] LABS: HEMATOCRIT 42.3 % (36.0-47.0); HEMOGLOBIN 14.5 g/dL (12.0-15.5); MEAN CORPUSCULAR HEMOGLOBIN 29.8 pg (27.0-33.4); MEAN CORPUSCULAR HGB CONC 34.3 g/dL (32.0-36.0); MEAN CORPUSCULAR VOLUME 87 fl (80-97); PLATELET COUNT 324 10^3/uL (150-450); RED BLOOD COUNT 4.87 10^6/uL (3.72-5.28); RED CELL DISTRIBUTION WIDTH 14.6 % (11.5-14.0); WHITE BLOOD COUNT 7.2 10^3/uL (4.0-10.5)
[2017-02-27 06:29] LABS: ABSOLUTE MONOCYTES # (MANUAL) 0.9 10^3/uL (0.1-1.4); ABSOLUTE NEUTROPHILS# (MANUAL) 1.9 10^3/uL (1.7-8.2); BASOPHILS % (MANUAL) 2 % (0-2); EOSINOPHILS % (MANUAL) 5 % (0-6); LYMPHOCYTES % (MANUAL) 52 % (13-45); MONOCYTES % (MANUAL) 12 % (3-13); SEGMENTED NEUTROPHILS % (MAN) 26 % (42-78); TOTAL CELLS COUNTED 100
[2017-02-27 06:30] LABS: ANISOCYTOSIS SLIGHT; HYPOCHROMASIA SLIGHT; PLATELET COMMENT ADEQUATE; TOXIC GRANULATION 1+; TOXIC VACUOLATION PRESENT
[2017-02-27] MEDS ORDERED: FENTANYL CITRATE INJ/PF 100 MCG/2 ML AMPUL ONE ×2 (06:46→06:48)
[2017-02-27] MEDS ORDERED: LIDOCAINE 2% INJ-PF (20 MG/ML) 10 ML AMPUL ONE (06:46)
[2017-02-27] MEDS ORDERED: HYDROMORPHONE HCL INJ/PF 2 MG/ML AMPULE ONE (06:46)
[2017-02-27] MEDS ORDERED: PROPOFOL INJ 200 MG/20 ML VIAL IV ONE (06:47)
[2017-02-27] MEDS ORDERED: MIDAZOLAM 2 MG/2 ML INJ ONE ×2 (06:47→07:39)
[2017-02-27] MEDS ORDERED: ACETAMINOPHEN 100 ML IV ONE (06:47)
[2017-02-27] MEDS ORDERED: LIDOCAINE 0.5% INJ-PF (5 MG/ML) 50 ML SDV ONE (07:21)
[2017-02-27] MEDS ORDERED: KETAMINE HCL INJ 500 MG/10 ML VIAL ONE (07:26)
[2017-02-27] MEDS ORDERED: CEFAZOLIN INJ 1 GM VIAL ONE (08:08)
[2017-02-27] MEDS ORDERED: FENTANYL CITRATE INJ/PF 100 MCG/2 ML AMPUL IV PRN ×2 (08:18)
[2017-02-27] MEDS ORDERED: ONDANSETRON HCL INJ/PF 4 MG/2 ML SDV IV PRN (08:18)
[2017-02-27] MEDS ORDERED: MEPERIDINE HCL/PF INJ 25 MG/1 ML DISP.SYRIN IV PRN (08:18)
[2017-02-27] MEDS ORDERED: MORPHINE SULFATE 10 MG/ML INJ IV PRN (08:18)
[2017-02-27] MEDS ORDERED: PROMETHAZINE HCL INJ 25 MG/1 ML VIAL IV PRN ×2 (08:18)
[2017-02-27] MEDS ORDERED: OXYCODONE-ACETAMINOPHEN 5-325 MG TABLET PO PRN ×3 (08:18→08:54)
[2017-02-27] MEDS ORDERED: LORAZEPAM INJ 2 MG/1 ML VIAL ONE (08:40)
[2017-02-27] MEDS: FENTANYL CITRATE INJ/PF 100 MCG/2 ML AMPUL ONE ×2 (08:55→09:00)
[2017-02-27] MEDS ORDERED: NORMAL SALINE 1000 ML 1,000 ML IV PRN (08:55)
[2017-02-27] MEDS ORDERED: ALPRAZOLAM 0.5 MG TABLET PO SCH (10:00)
[2017-02-27] MEDS ORDERED: SERTRALINE HCL 50 MG TABLET PO SCH (10:00)
[2017-02-27] MEDS: FENTANYL CITRATE INJ/PF 100 MCG/2 ML AMPUL IV PRN ×4 (10:10→10:54)
[2017-02-27] MEDS: DIPHENHYDRAMINE HCL 50 MG/ML VIAL IV PRN ×2 (10:12→10:53)
[2017-02-27] MEDS ORDERED: PIPERACILLIN SODIUM/TAZOBACTAM 3.375 GM in NORMAL SALINE 100 ML IV SCH (12:00)
[2017-02-27] MEDS ORDERED: SUCCINYLCHOLINE CHLORIDE INJ 200 MG/10 ML VIAL ONE (13:07)
[2017-02-27 16:25] VITALS: BP 103/60
--- NOTE | 2017-03-15 17:44 | PDOC DISCHARGE SUMMARY ---
Discharge Summary (SDC) - Discharge Final Diagnosis: Abscess right breast with necrotic skin Condition: Good Forms: Discharge POC-Adult Treatment or Instructions: F/U at surgical clinic in 1 week Referrals: BALAJI FOUNTAIN MD [ICE SKATING INSTRUCTOR] - 03/07/17 1:00 pm Discharge Activity: Activity As Tolerated Home Care Assistance: None Needed, Provided by Family Report the Following to Your Physician Immediately: Increase in Pain, Fever over 101 Degrees, Drainage-Foul Smelling
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
== END 2017-02-27 16:38 | disposition home or self-care (01) ==
LOC: OROUT 15:44 → EH 18:06 → 4S 19:38
PROVIDERS: ATTEND Surgery
PROC: 0HBTXZZ (ICD-10-PCS; principal; 2017-02-26)
PROC: 0H9TXZX (ICD-10-PCS; 2017-02-26)
PROC: 0HD5XZZ Extraction of Chest Skin, External Approach (ICD-10-PCS; 2017-02-26)
DX: N61.1 Abscess of the breast and nipple (principal); I96 Gangrene, not elsewhere classified; W46.1XXA Contact with contaminated hypodermic needle, initial encounter; F17.210 Nicotine dependence, cigarettes, uncomplicated; F41.9 Anxiety disorder, unspecified
CPT/HCPCS: 99284; 96374; 96375; 36415 ×2; 87040; 87070; 87205; 84702; 85025 ×2; 87075; 87077; 80053; 81001; 87186; 80307; 83605; 71020; 19120; 11000; G0378 ×3; A6266; J3490 ×5; J2250; J0690; J3010; J1885; J2270; J1170; J2060; J0330; J2405; J7030; J2704; J2543; J0131; 400

== ENCOUNTER 2017-12-14 13:20 | Emergency (ER) | payer MEDICAID ==
[2017-12-14 13:34] VITALS: BP 132/69
--- NOTE | 2017-12-14 14:02 | ER Document Report ---
ED General - General Chief Complaint: Ankle Injury Stated Complaint: ANKLE PAIN Time Seen by Provider: 12/14/17 14:01 Notes: Patient is a 37-year-old female that presents to the emergency department for chief complaint of bilateral ankle pain. Patient states that about 3 days ago, she was walking in the rain, and she accidentally had twisted her left ankle, she was trying to favor her right side, because of her pain in her left ankle. And resulted in twisting her right ankle today. She states the pain was unbearable so she decided to come to the emergency department. She states that she did not fall or hit her head with either of these injuries. She denies any numbness, tingling or weakness distally to her injuries. She had noticed some swelling. She currently rates her pain as a 6 out of 10 describes as a constant aching sensation, she did take to 100 mg Motrin prior to ED arrival. Past Medical History: Spina bifida Past Surgical History: Intracranial aneurysmal clipping Social History: Admits to smoking cigarettes, denies alcohol or drug use. Family History: Reviewed and noncontributory for presenting illness Allergies: Reviewed, see documented allergy list. REVIEW OF SYSTEMS: Unless otherwise stated in this report the patient's positive and negative responses for review of systems for constitutional, eyes, ENT, cardiovascular, respiratory, gastrointestinal, neurological, genitourinary, musculoskeletal, and integumentary systems and related systems to the presenting problem are either as stated in the HPI or were not pertinent or were negative for the symptoms and/or complaints related to the presenting medical problem. PHYSICAL EXAMINATION: Vital signs reviewed, nursing noted reviewed. GENERAL: Well-appearing, well-nourished and in no acute distress. HEAD: Atraumatic, normocephalic. EYES: Eyes appear normal, extraocular movements intact, sclera anicteric, conjunctiva are normal. ENT: nares patent, oropharynx clear without exudates. Moist mucous membranes. NECK: Normal range of motion, supple without lymphadenopathy LUNGS: Breath sounds clear to auscultation bilaterally and equal. No wheezes rales or rhonchi. HEART: Regular rate and rhythm without murmurs ABDOMEN: Soft, nontender, normoactive bowel sounds. No rebound, guarding, or rigidity. No masses appreciated. EXTREMITIES: Bilateral ankles are evaluated, patient did have mild edema laterally in both ankles, no ecchymosis, no gross deformity, there is tenderness to palpation over the lateral malleolus bilaterally, no tenderness medially, no joint instability. Muscular motor strength and sensation intact distally in both lower extremities. The rest of her extremity exam is grossly unremarkable. Nontender, good range of motion, no pitting or edema. NEUROLOGICAL: No focal neurological deficits. Moves all extremities spontaneously Motor and sensory grossly intact on exam. PSYCH: Normal mood, normal affect. SKIN: Warm, Dry, normal turgor, no rashes or lesions noted on exposed skin TRAVEL OUTSIDE OF THE [place] 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 Denies: Hx Peritoneal Dialysis GI Medical History: Reports: Hx Cirrhosis, Hx Gastritis, Hx Colonoscopy, Hx Endoscopy Musculoskeletal Medical History: Reports Hx Musculoskeletal Deformity, Reports Hx Musculoskeletal Trauma Psychiatric Medical History: Reports: Hx Anxiety, Hx Attention Deficit Hyperactivity Disorder, Hx Bipolar Disorder, Hx Depression, Hx Obsessive Compulsive Disorder Traumatic Medical History: Reports: Hx Fractures - Right arm Past Surgical History: Reports: Hx Orthopedic Surgery, Hx Vascular Surgery - brain angiogram - Immunizations Immunizations up to date: Yes Hx Diphtheria, Pertussis, Tetanus Vaccination: Yes - 2013 Physical Exam - Vital signs Vitals: Temp Pulse Resp BP Pulse Ox 99.0 F 134 H 18 132/69 H 97 12/14/17 13:32 12/14/17 13:32 12/14/17 13:32 12/14/17 13:32 12/14/17 13:32 Course - Re-evaluation Re-evalutation: Patient seen and examined vital signs reviewed. Patint was evaluated and treated as appropriate for the patient's presenting symptoms and complaint, with consideration of any critical or life threatening conditions that may be associated with their obtained history and exam as noted above. X-rays of both ankles were obtained Patient was treated with [place] 5 mg / 325 mg and ice therapy The patient was re-evaluated and was improved, placed in bilateral ankle stirrup splints Evaluation was most consistent with bilateral ankle sprains, patient given bilateral ankle stirrup splints, Praful wraps, and crutches. Plan of care was discussed with the patient at this point, after careful consideration I feel that that patient can be discharged from the emergency department, the patient was educated treatments and reasons to return to the emergency department based on their presumed diagnosis as noted above, they were advised to followup with a primary care physician in 2-3 days. Patient was agreeable to plan of care. *Note is created using voice recognition software and may contain spelling, syntax or grammatical errors. Ankle X-Ray 12/14/17 14:17 IMPRESSION: NO FRACTURE. - Vital Signs Vital signs: Temp Pulse Resp BP Pulse Ox 99.0 F 134 H 18 132/69 H 97 12/14/17 13:32 12/14/17 13:32 12/14/17 13:32 12/14/17 13:32 12/14/17 13:32 Procedures - Immobilization Left Ankle Pre-Proc Neuro Vasc Exam: Normal Immobilizer type: Ankle stirrup Performed by: RN Post-Proc Neuro Vasc Exam: Normal Right Ankle Pre-Proc Neuro Vasc Exam: Normal Immobilizer type: Ankle stirrup Performed by: RN Post-Proc Neuro Vasc Exam: Normal, Unchanged from pre-exam Discharge - Discharge Clinical Impression: Bilateral ankle pain Qualifiers: Chronicity: acute Qualified Code(s): M25.571 - Pain in right ankle and joints of right foot Condition: Stable Disposition: HOME, SELF-CARE Instructions: Ankle Stirrup Splint ([facility]), Use of Crutches ([facility]), Sprained Ankle ([facility]) Additional Instructions: Do not take the prescribed naproxen with any other nsaids, such as motrin, advil , ibuprofen, or aleve. Prescriptions: Naproxen 500 mg PO Q12H PRN #30 tablet PRN Reason: ankle pain Referrals: LETITIA VELAZQUEZ MD [Primary Care Provider] - Follow up in 3-5 days
[2017-12-14] MEDS ORDERED: HYDROCODONE/ACETAMINOPHEN 5-325 MG TABLET PO ONE (14:18)
--- NOTE | 2017-12-14 14:56 | RADIOLOGY REPORT (SQ) ---
EXAM DESCRIPTION: ANKLE LEFT COMPLETE COMPLETED DATE/TIME: 12/14/2017 2:47 pm REASON FOR STUDY: left ankle pain, injury COMPARISON: None. EXAM PARAMETERS: NUMBER OF VIEWS: Three views. TECHNIQUE: AP, lateral and oblique radiographic images acquired of the left ankle LIMITATIONS: None. FINDINGS: MINERALIZATION: Normal. BONES: No acute fracture or dislocation. No worrisome bone lesions. JOINTS: No effusion. SOFT TISSUES: No significant soft tissue swelling. No radiopaque foreign body. OTHER: No other significant finding. IMPRESSION: NO FRACTURE. TECHNICAL DOCUMENTATION: JOB ID: [id number] [place]-72 2010 [employer]- All Rights Reserved Reading location - IP/workstation name: [email or web address]
--- NOTE | 2017-12-14 14:58 | RADIOLOGY REPORT (SQ) ---
EXAM DESCRIPTION: ANKLE RIGHT COMPLETE COMPLETED DATE/TIME: 12/14/2017 2:47 pm REASON FOR STUDY: right ankle pain, injury COMPARISON: None. EXAM PARAMETERS: NUMBER OF VIEWS: Three views. TECHNIQUE: AP, lateral and oblique radiographic images acquired of the right ankle. LIMITATIONS: None. FINDINGS: MINERALIZATION: Normal. BONES: No acute fracture or dislocation. No worrisome bone lesions. JOINTS: No effusion. SOFT TISSUES: No significant soft tissue swelling. No radiopaque foreign body. OTHER: No other significant finding. IMPRESSION: NO FRACTURE. TECHNICAL DOCUMENTATION: JOB ID: [id number] [place]-72 2010 [employer]- All Rights Reserved Reading location - IP/workstation name: [email or web address]
[2017-12-14] MEDS ORDERED: HYDROCODONE/ACETAMINOPHEN 5-325 MG (6 TAB/ER DISP) PO PRN (15:17)
== END 2017-12-14 15:45 | disposition home or self-care (01) ==
LOC: ER 13:20
DX: M25.571 Pain in right ankle and joints of right foot (principal); M25.572 Pain in left ankle and joints of left foot; X50.1XXA Overexertion from prolonged static or awkward postures, initial encounter; R60.0 Localized edema; F17.210 Nicotine dependence, cigarettes, uncomplicated
CPT/HCPCS: 99283; 73610 ×2; L1902

== ENCOUNTER 2018-01-01 12:24 | Emergency (ER) | payer MEDICAID ==
[2018-01-01] MEDS ORDERED: NORMAL SALINE 1000 ML 1,000 ML IV ONE (13:05)
--- NOTE | 2018-01-01 13:05 | ER Document Report ---
ED General - General Chief Complaint: Back Pain Stated Complaint: BACK PAIN Time Seen by Provider: 01/01/18 12:51 Notes: Patient is a 37-year-old female that presents to the emergency department for chief complaint of tailbone pain, and headache after injury. Patient states that she slipped in her house last night and fell on her tailbone landed on her bottom. She did not hit her head or have head injury. Since that time she has pain in her tailbone, that radiated towards her head. She is worried because she has spina bifida that something might have been injured. She denies having any numbness, tingling or weakness in any extremity. Denies bowel or bladder incontinence, denies urinary retention. She rates her headache currently as a 6 out of 10, throbbing in nature, constant. She did not take any medications to help alleviate her pain. She rates the pain in her tailbone as a 6 out of 10 as well, again describes it as an aching constant sensation. Past Medical History: Spina bifida, history of opiate abuse Past Surgical History: Denies surgical history Social History: Admits to smoking cigarettes, denies alcohol use, former IV drug user Family History: Reviewed and noncontributory for presenting illness Allergies: Reviewed, see documented allergy list. REVIEW OF SYSTEMS: Unless otherwise stated in this report the patient's positive and negative responses for review of systems for constitutional, eyes, ENT, cardiovascular, respiratory, gastrointestinal, neurological, genitourinary, musculoskeletal, and integumentary systems and related systems to the presenting problem are either as stated in the HPI or were not pertinent or were negative for the symptoms and/or complaints related to the presenting medical problem. PHYSICAL EXAMINATION: Vital signs reviewed, nursing noted reviewed. GENERAL: Well-appearing, well-nourished and in no acute distress. HEAD: Atraumatic, normocephalic. EYES: Eyes appear normal, extraocular movements intact, sclera anicteric, conjunctiva are normal. ENT: nares patent, oropharynx clear without exudates. Moist mucous membranes. NECK: Normal range of motion, supple without lymphadenopathy LUNGS: Breath sounds clear to auscultation bilaterally and equal. No wheezes rales or rhonchi. HEART: Regular rate and rhythm without murmurs ABDOMEN: Soft, nontender, normoactive bowel sounds. No rebound, guarding, or rigidity. No masses appreciated. EXTREMITIES: Nontender, good range of motion, no pitting or edema. NEUROLOGICAL: No focal neurological deficits. Moves all extremities spontaneously Motor and sensory grossly intact on exam. Reflexes are +2/4 in the Achilles and patellar tendons bilaterally and equal PSYCH: Normal mood, normal affect. SKIN: Warm, Dry, normal turgor, multiple scarred areas on the arms and legs, from prior injections, no signs of infection or cellulitis TRAVEL OUTSIDE OF THE [place] 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 Denies: Hx Peritoneal Dialysis GI Medical History: Reports: Hx Cirrhosis, Hx Gastritis, Hx Colonoscopy, Hx Endoscopy Musculoskeletal Medical History: Reports Hx Musculoskeletal Deformity, Reports Hx Musculoskeletal Trauma Psychiatric Medical History: Reports: Hx Anxiety, Hx Attention Deficit Hyperactivity Disorder, Hx Bipolar Disorder, Hx Depression, Hx Obsessive Compulsive Disorder Traumatic Medical History: Reports: Hx Fractures - Right arm Past Surgical History: Reports: Hx Orthopedic Surgery, Hx Vascular Surgery - brain angiogram - Immunizations Immunizations up to date: Yes Hx Diphtheria, Pertussis, Tetanus Vaccination: Yes - 2013 Physical Exam - Vital signs Vitals: Temp Pulse Resp BP Pulse Ox 98 F 105 H 18 132/80 H 100 01/01/18 12:40 01/01/18 12:40 01/01/18 12:40 01/01/18 12:40 01/01/18 12:40 Course - Re-evaluation Re-evalutation: Patient seen and examined vital signs reviewed. Laboratory data and imaging were ordered as appropriate for the patient's presenting symptoms and complaint, with consideration of any critical or life threatening conditions that may be associated with their obtained history and exam as noted above. Patient was treated with IV fluids, Reglan, Robaxin Results were reviewed when available and demonstrated negative CT of the head, and negative x-rays of the lumbar spine The patient was re-evaluated and was improved, her tailbone pain was improved, headache was not resolving as well Evaluation was most consistent with coccydynia, and resulting headache and low back pain, from axial loading, patient, patient will be discharged to home, given prescription for Fioricet #6, and to follow-up with a primary care physician. Results were discussed with the patient at this point, after careful consideration I feel that that patient can be discharged from the emergency department, the patient was educated treatments and reasons to return to the emergency department based on their presumed diagnosis as noted above, they were advised to followup with a primary care physician in 2-3 days. Patient was agreeable to plan of care. *Note is created using voice recognition software and may contain spelling, syntax or grammatical errors. Head CT 01/01/18 13:06 IMPRESSION: NORMAL BRAIN CT WITHOUT CONTRAST. EVIDENCE OF ACUTE STROKE: NO. Lumbar Spine X-Ray 01/01/18 13:06 IMPRESSION: Minimal levoscoliosis. - Vital Signs Vital signs: Temp Pulse Resp BP Pulse Ox 98 F 105 H 18 132/80 H 100 01/01/18 12:40 01/01/18 12:40 01/01/18 12:40 01/01/18 12:40 01/01/18 12:40 Discharge - Discharge Clinical Impression: Acute coccygeal pain Headache Qualifiers: Headache type: unspecified Headache chronicity pattern: acute headache Intractability: not intractable Qualified Code(s): R51 - Headache Low back pain Qualifiers: Chronicity: acute Back pain laterality: bilateral Sciatica presence: without sciatica Qualified Code(s): M54.5 - Low back pain Condition: Stable Disposition: HOME, SELF-CARE Additional Instructions: Please return to the emergency department if you have any worsening, or concern of your symptoms. Please return to the emergency department if you develop chest pain, difficulty breathing, severe abdominal pain, or ongoing vomiting. Please follow-up with your primary care physician in 2-3 days and any other recommended physicians. If prescribed, take all medications as directed. If you have any questions or concerns do not hesitate to return the emergency department for evaluation. Prescriptions: Butalb/Acetaminophen/Caffeine [Fioricet (50-325-40 mg) Tablet] 1 tab PO Q6HP PRN #6 tab PRN Reason: headache Referrals: LETITIA VELAZQUEZ MD [Primary Care Provider] - Follow up in 3-5 days
[2018-01-01] MEDS ORDERED: METOCLOPRAMIDE HCL INJ/PF 10 MG/2 ML SDV IV ONE (13:06)
[2018-01-01] MEDS ORDERED: METHOCARBAMOL INJ/PF 1000 MG/10 ML SDV IV ONE (13:06)
--- NOTE | 2018-01-01 14:13 | RADIOLOGY REPORT (SQ) ---
EXAM DESCRIPTION: CT HEAD WITHOUT COMPLETED DATE/TIME: 01/01/2018 1:54 pm REASON FOR STUDY: headache COMPARISON: None. TECHNIQUE: Axial images acquired through the brain without intravenous contrast. Images reviewed wi th bone, brain and subdural windows. Additional sagittal and coronal reconstructions were generated. Images stored on PACS. All CT scanners at this facility use dose modulation, iterative reconstruction, and/or weight based d osing when appropriate to reduce radiation dose to as low as reasonably achievable (ALARA). [facility]: Dose Right [facility]: CareDose [facility]: Dose Right [facility]: Teradose 4D [facility]: [employer] RADIATION DOSE: CT Rad equipment meets quality standard of care and radiation dose reduction techniq ues were employed. CTDIvol: 53.2 mGy. DLP: 1017 mGy-cm. mGy. LIMITATIONS: None. FINDINGS: VENTRICLES: Normal size and contour. CEREBRUM: No masses. No hemorrhage. No midline shift. No evidence for acute infarction. Normal gra y/white matter differentiation. No areas of low density in the white matter. CEREBELLUM: No masses. No hemorrhage. No alteration of density. No evidence for acute infarction. EXTRAAXIAL SPACES: No fluid collections. No masses. ORBITS AND GLOBE: No intra- or extraconal masses. Normal contour of globe without masses. CALVARIUM: No fracture. PARANASAL SINUSES: No fluid or mucosal thickening. SOFT TISSUES: No mass or hematoma. OTHER: No other significant finding. IMPRESSION: NORMAL BRAIN CT WITHOUT CONTRAST. EVIDENCE OF ACUTE STROKE: NO. COMMENT: Quality ID # [id number]: Final reports with documentation of one or more dose reduction techniques (e.g., Automated exposure control, adjustment of the mA and/or kV according to patient size, use of iterative reconstruction technique) TECHNICAL DOCUMENTATION: JOB ID: [id number] [employer]- All Rights Reserved Reading location - IP/workstation name: [email or web address]
[2018-01-01] MEDS ORDERED: KETOROLAC TROMETHAMINE INJ/PF 30 MG/1 ML SDV IV ONE (14:22)
--- NOTE | 2018-01-01 14:22 | RADIOLOGY REPORT (SQ) ---
EXAM DESCRIPTION: L SPINE WHOLE COMPLETED DATE/TIME: 01/01/2018 2:11 pm REASON FOR STUDY: low back pain, injury COMPARISON: None. NUMBER OF VIEWS: Five views including obliques. TECHNIQUE: AP, lateral, oblique, and sacral radiographic images acquired of the lumbar spine. LIMITATIONS: None. FINDINGS: MINERALIZATION: Normal. SEGMENTATION: Normal. No transitional anatomy. ALIGNMENT: Minimal scoliosis. VERTEBRAE: Maintained height. No fracture or worrisome bone lesion. DISCS: Preserved height. No significant osteophytes or end plate irregularity. POSTERIOR ELEMENTS: Pedicles and facets are intact. No pars defect or posterior arch defects. HARDWARE: None in the spine. PARASPINAL SOFT TISSUES: Normal. PELVIS: Intact as visualized. No fractures or worrisome bone lesions. SI joints intact. OTHER: No other significant finding. IMPRESSION: Minimal levoscoliosis. TECHNICAL DOCUMENTATION: JOB ID: [id number] [employer]- All Rights Reserved Reading location - IP/workstation name: [email or web address]
[2018-01-01] MEDS ORDERED: BUTALB/ACETAMINOPHEN/CAFFEINE 1 TAB EACH PO ONE (14:45)
[2018-01-01 15:41] VITALS: BP 129/72
== END 2018-01-01 15:41 | disposition home or self-care (01) ==
LOC: ER 12:24
DX: M53.3 Sacrococcygeal disorders, not elsewhere classified (principal); M54.5 Low back pain; R51 Headache; M54.9 Dorsalgia, unspecified; W01.0XXA Fall on same level from slipping, tripping and stumbling without subsequent striking against object, initial encounter; Y92.009 Unspecified place in unspecified non-institutional (private) residence as the place of occurrence of the external cause; Q05.9 Spina bifida, unspecified; F17.210 Nicotine dependence, cigarettes, uncomplicated
CPT/HCPCS: 99284; 96361; 96374; 96375; 36415; 84703; 72110; 70450; J3490; J2800; J1885; J2765; J7030

== ENCOUNTER 2018-01-06 09:02 | Observation (INO) | payer MEDICAID ==
[2018-01-06] MEDS ORDERED: ONDANSETRON HCL INJ/PF 4 MG/2 ML SDV IV ONE (09:40)
[2018-01-06] MEDS ORDERED: NORMAL SALINE 1000 ML 1,000 ML IV ONE (09:40)
[2018-01-06 10:06] LABS: ABSOLUTE BASOPHILS # (AUTO) 0.1 10^3/uL (0.0-0.2); ABSOLUTE EOSINOPHILS # (AUTO) 0.2 10^3/uL (0.0-0.6); ABSOLUTE MONOCYTES (AUTO) 0.7 10^3/uL (0.1-1.4); ABSOLUTE NEUT (AUTO) 5.6 10^3/uL (1.7-8.2); BASOPHILS % (AUTO) 0.9 % (0-2); EOSINOPHILS % (AUTO) 1.8 % (0-6); HEMATOCRIT 40.4 % (36.0-47.0); HEMOGLOBIN 13.9 g/dL (12.0-15.5); LYMPHOCYTES % (AUTO) 23.2 % (13-45); MEAN CORPUSCULAR HEMOGLOBIN 30.5 pg (27.0-33.4); MEAN CORPUSCULAR HGB CONC 34.4 g/dL (32.0-36.0); MEAN CORPUSCULAR VOLUME 89 fl (80-97); PLATELET COUNT 269 10^3/uL (150-450); RED BLOOD COUNT 4.56 10^6/uL (3.72-5.28); RED CELL DISTRIBUTION WIDTH 14.5 % (11.5-14.0); SEGMENTED NEUTROPHILS % (AUTO) 66.1 % (42-78); TOTAL CELLS COUNTED % (AUTO) 100 %; WHITE BLOOD COUNT 8.5 10^3/uL (4.0-10.5)
[2018-01-06] MEDS ORDERED: MORPHINE SULFATE 10 MG/ML INJ IV ONE (10:11)
[2018-01-06 10:12] LABS: CARBON DIOXIDE 25 mmol/L (22-30); TOTAL PROTEIN 7.5 g/dL (6.3-8.2)
--- NOTE | 2018-01-06 10:12 | ER Document Report ---
ED General - General Chief Complaint: Syncope Stated Complaint: VOMITING Time Seen by Provider: 01/06/18 09:39 TRAVEL OUTSIDE OF THE [place] IN LAST 30 DAYS: No - HPI Notes: Patient is a 37-year-old female that presents to the emergency department for chief complaint of headache and syncope. Patient states she has had a headache constant since 01/01/18. She states it is diffuse and throbbing. It is worse when she sits up and relieved when she lays flat. It has not completely resolved since it started on 01/01. She states she has a history of intracranial aneurysm and spina bifida. She reports that she has had a hard time getting up and going to the bathroom because the pain becomes more severe with standing and she has stooled herself. She states she did feel the urge to go to the bathroom but felt she was unable to make it to the bathroom in time. She denies any further injury since her previous exam. She also states 2 episodes of complete syncope. She states she was getting up to attempt to go to the bathroom and felt lightheaded and then completely lost consciousness. This happened one time yesterday and one time today. Mother denies witnessing any seizure activity or confusion after the syncope. Patient has been taking Fioricet for the headache with minimal relief. She states when the pain gets severe she does feel nauseous and vomits. Past Medical History: Spina bifida, opiate abuse Past Surgical History: Reviewed in chart Social History: History of IV drug abuse. Denies current drug use. Denies alcohol. Family History: Reviewed and noncontributory for presenting illness Allergies: Reviewed, see documented allergy list. REVIEW OF SYSTEMS: CONSTITUTIONAL : No fever No chills No diaphoresis No recent illness EENT: No vision changes No congestion No sore throat CARDIOVASCULAR: No chest pain No palpitations Syncope RESPIRATORY: No shortness of breath No cough No difficulty breathing GASTROINTESTINAL: No abdominal pain nausea vomiting No diarrhea GENITOURINARY: No dysuria No hematuria No difficulty urinating MUSCULOSKELETAL: No back pain No leg pain No arm pain SKIN: No rashes No lesions LYMPHATIC: No swollen, enlarged glands. NEUROLOGICAL: No lightheadedness headache No weakness No paresthesias PSYCHIATRIC: No anxiety No depression PHYSICAL EXAMINATION: Vital signs reviewed, nursing noted reviewed. GENERAL: Well-appearing, well-nourished and in no acute distress. HEAD: Atraumatic, normocephalic. EYES: Eyes appear normal, extraocular movements intact, sclera anicteric, conjunctiva are normal. ENT: nares patent, oropharynx clear without exudates. Moist mucous membranes. NECK: Normal range of motion, supple without lymphadenopathy LUNGS: Breath sounds clear to auscultation bilaterally and equal. No wheezes rales or rhonchi. HEART: Regular rate and rhythm without murmurs ABDOMEN: Soft, nontender, normoactive bowel sounds. No rebound, guarding, or rigidity. No masses appreciated. EXTREMITIES: Nontender, good range of motion, no pitting or edema. NEUROLOGICAL: No focal neurological deficits. Moves all extremities spontaneously Motor and sensory grossly intact on exam. 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 Denies: Hx Peritoneal Dialysis GI Medical History: Reports: Hx Cirrhosis, Hx Gastritis, Hx Colonoscopy, Hx Endoscopy Musculoskeletal Medical History: Reports Hx Musculoskeletal Deformity, Reports Hx Musculoskeletal Trauma Psychiatric Medical History: Reports: Hx Anxiety, Hx Attention Deficit Hyperactivity Disorder, Hx Bipolar Disorder, Hx Depression, Hx Obsessive Compulsive Disorder Traumatic Medical History: Reports: Hx Fractures - Right arm Past Surgical History: Reports: Hx Orthopedic Surgery, Hx Vascular Surgery - brain angiogram - Immunizations Immunizations up to date: Yes Hx Diphtheria, Pertussis, Tetanus Vaccination: Yes - 2013 Review of Systems - Review of Systems Notes: Dictated Physical Exam - Vital signs Vitals: Resp 13 01/06/18 09:18 - Notes Notes: Dictated Course - Re-evaluation Re-evalutation: 01/06/18 10:11 Vitals reviewed. Nursing notes reviewed. Patient given IV hydration, antiemetics and pain medication. 01/06/18 12:07 On reevaluation patient states her nausea is improved but the headache is unchanged. CT angios shows no brain aneurysm or acute hemorrhage. She was given a dose of Toradol, Benadryl, and Reglan for her intractable headache. The remainder patient's lab work is unremarkable. She has not had any events on telemetry. Her EKG showed no ischemia or dysrhythmia. Patient will be admitted for observation for further pain control of her intractable headache as well as cardiac monitoring because of her recurrent syncopal episodes. Patient and family are in agreement with this plan. Case discussed with admitting physician Dr. King Laboratory 01/06/18 01/06/18 01/06/18 09:45 09:45 09:45 WBC 8.5 RBC 4.56 Hgb 13.9 Hct 40.4 MCV 89 MCH 30.5 MCHC 34.4 RDW 14.5 H Plt Count 269 Seg Neutrophils % 66.1 Lymphocytes % 23.2 Monocytes % 8.0 Eosinophils % 1.8 Basophils % 0.9 Absolute Neutrophils 5.6 Absolute Lymphocytes 2.0 Absolute Monocytes 0.7 Absolute Eosinophils 0.2 Absolute Basophils 0.1 Sodium 140.2 Potassium 4.3 Chloride 105 Carbon Dioxide 25 Anion Gap 10 BUN 11 Creatinine 0.62 Est GFR ( Amer) > 60 Est GFR (Non-Af Amer) > 60 Glucose 104 Calcium 9.4 Total Bilirubin 0.5 Direct Bilirubin 0.2 Neonat Total Bilirubin Not Reportable Neonat Direct Bilirubin Not Reportable Neonat Indirect Bili Not Reportable AST 11 L ALT 12 Alkaline Phosphatase 75 Troponin I < 0.012 Total Protein 7.5 Albumin 4.0 Head CTA 01/06/18 09:53 IMPRESSION: NORMAL BRAIN CT WITH AND WITHOUT CONTRAST. NO CTA EVIDENCE OF STENOSIS OR ANEURYSM OF THE [place]. EVIDENCE OF ACUTE STROKE: NO. - Vital Signs Vital signs: Temp Pulse Resp BP Pulse Ox 74 14 130/86 H 98 01/06/18 11:34 01/06/18 10:01 01/06/18 11:34 01/06/18 10:01 - Laboratory Result Diagrams: 01/06/18 09:45 01/06/18 09:45 Laboratory results interpreted by me: 01/06/18 01/06/18 09:45 09:45 RDW 14.5 H AST 11 L - EKG Interpretation by Me Additional EKG results interpreted by me: 01/06/18 10:12 0959: Normal sinus rhythm, rate 83, normal axis, no ectopy, no ST elevation Discharge - Discharge Clinical Impression: Syncope Qualifiers: Syncope type: unspecified Qualified Code(s): R55 - Syncope and collapse Intractable headache Qualifiers: Headache type: unspecified Headache chronicity pattern: acute headache Qualified Code(s): R51 - Headache Condition: Stable Disposition: ADMITTED OBSERVATION Admitting Provider: Hospitalist
[2018-01-06 10:13] LABS: ALANINE AMINOTRANSFERASE 12 U/L (9-52); ALKALINE PHOSPHATASE 75 U/L (38-126); ASPARTATE AMINO TRANSFERASE 11 U/L (14-36); BILIRUBIN,DIRECT 0.2 mg/dL (0.0-0.4); BILIRUBIN,TOTAL 0.5 mg/dL (0.2-1.3); BLOOD UREA NITROGEN 11 mg/dL (7-20); CALCIUM 9.4 mg/dL (8.4-10.2); GLUCOSE 104 mg/dL (75-110); POTASSIUM 4.3 mmol/L (3.6-5.0)
[2018-01-06 10:15] LABS: ANION GAP 10 (5-19); CHLORIDE 105 mmol/L (98-107); SODIUM 140.2 mmol/L (137-145)
--- NOTE | 2018-01-06 11:17 | RADIOLOGY REPORT (SQ) ---
EXAM DESCRIPTION: CTA HEAD COMPLETED DATE/TIME: 01/06/2018 11:01 am REASON FOR STUDY: headache COMPARISON: None. TECHNIQUE: Axial images acquired through the brain without and with intravenous contrast. Images re viewed with bone, brain and subdural windows. Additional sagittal and coronal reconstructions were g enerated. Images stored on PACS. CT angio [place] was performed. Thin section postcontrast CT images were reviewed with maxim um intensity projected images of the [place] in multiple orientations. All CT scanners at this facility use dose modulation, iterative reconstruction, and/or weight based d osing when appropriate to reduce radiation dose to as low as reasonably achievable (ALARA). [facility]: Dose Right [facility]: CareDose [facility]: Dose Right [facility]: Teradose 4D [facility]: EverPresent CONTRAST TYPE AND DOSE: contrast/concentration: Isovue 350.00 mg/ml; Total Contrast Delivered: 70.0 ml; Total Saline Delivered: 62.0 ml RENAL FUNCTION: None required. The patient is less than 50 years old. RADIATION DOSE: CT Rad equipment meets quality standard of care and radiation dose reduction techniq ues were employed. CTDIvol: 9.0 - 22.0 mGy. DLP: 243 mGy-cm.. LIMITATIONS: None. FINDINGS: VENTRICLES: Normal size and contour. CEREBRUM: No masses. No hemorrhage. No midline shift. No evidence for acute infarction. Normal gra y/white matter differentiation. No areas of low density in the white matter. CEREBELLUM: No masses. No hemorrhage. No alteration of density. No evidence for acute infarction. No enhancing lesions. EXTRA-AXIAL SPACES: No fluid collections. No enhancing lesions. ORBITS AND GLOBE: No intra- or extraconal masses. Normal contour of globe without masses. CALVARIUM: No fracture. PARANASAL SINUSES: No fluid or mucosal thickening. SOFT TISSUES: No mass or hematoma. OTHER: No other significant finding. CTA COW: [place]: The anterior, middle, posterior cerebral arteries are all patent. No evidence of a neurysm or focal stenosis. POSTERIOR CIRCULATION: The distal vertebral arteries are patent as is the basilar artery. No aneurysm . OTHER: No other significant finding. IMPRESSION: NORMAL BRAIN CT WITH AND WITHOUT CONTRAST. NO CTA EVIDENCE OF STENOSIS OR ANEURYSM OF THE [place]. EVIDENCE OF ACUTE STROKE: NO. TECHNICAL DOCUMENTATION: JOB ID: [id number] Quality ID # [id number]: Final reports with documentation of one or more dose reduction techniques (e.g., Au tomated exposure control, adjustment of the mA and/or kV according to patient size, use of iterative reconstruction technique) 2010 [employer]- All Rights Reserved Reading location - IP/workstation name: [email or web address]
[2018-01-06] MEDS ORDERED: DIPHENHYDRAMINE HCL 50 MG CAPSULE PO ONE (12:02)
[2018-01-06] MEDS ORDERED: METOCLOPRAMIDE HCL INJ/PF 10 MG/2 ML SDV IV ONE (12:02)
[2018-01-06] MEDS ORDERED: KETOROLAC TROMETHAMINE INJ/PF 30 MG/1 ML SDV IV ONE (12:03)
[2018-01-06] MEDS ORDERED: KETOROLAC TROMETHAMINE INJ/PF 30 MG/1 ML SDV IV PRN (13:02)
[2018-01-06] MEDS ORDERED: PROCHLORPERAZINE EDISYLATE INJ 10 MG/2 ML VIAL IM PRN (13:05)
[2018-01-06] MEDS ORDERED: DIPHENHYDRAMINE HCL 50 MG/ML VIAL IV PRN (13:06)
[2018-01-06] MEDS ORDERED: ALPRAZOLAM 0.5 MG TABLET PO PRN (13:14)
[2018-01-06] MEDS ORDERED: GABAPENTIN 400 MG CAPSULE PO SCH (14:00)
[2018-01-06] MEDS ORDERED: SERTRALINE HCL 50 MG TABLET PO SCH (14:00)
[2018-01-06 14:27] LABS: URINE AMPHETAMINES SCREEN NEGATIVE; URINE BARBITURATES SCREEN UNCONFIRMED POSITIVE; URINE BENZODIAZEPINES SCREEN UNCONFIRMED POSITIVE; URINE COCAINE SCREEN NEGATIVE; URINE MARIJUANA (THC) SCREEN UNCONFIRMED POSITIVE; URINE METHADONE SCREEN NEGATIVE; URINE PHENCYCLIDINE SCREEN NEGATIVE
[2018-01-06 16:27] VITALS: BP 121/53
--- NOTE | 2018-01-06 19:08 | PDOC H&P ---
History of Present Illness Admission Date/PCP: 01/06/18 13:50 LETITIA VELAZQUEZ MD History of Present Illness: NICK GARCIA is a 37 year old female who says she had an aneurysm in her brain years ago that was repaired who unfortunately had to experience the of her about 3 weeks ago and apparently has been in a depression ever since. She has had a headache off and on for a couple of weeks. She describes it as both sides, over the top of her head and down the back of her neck. She came to the ER about a week ago they sent her home with a medication that had phenobarbital in it and that has helped some but not help to keep it away completely. Apparently she tried ibuprofen once, and she also tried BC powder. They gave her a couple of medicines down in the ER and were going to bring her in overnight for observation. They originally presented this to me as a near syncopal episode, but when I talked to the patient and her mother, they said she stood up and the pain in her head got so high that she went down to the ground and laid down. The patient and her mother both deny that the patient had any fainting spell or near syncopal event. Past Medical History Neurological Medical History: Reports: Migraine GI Medical History: Reports: Cirrhosis Psychiatric Medical History: Reports: Attention Deficit Hyperactivity Disorder, Bipolar Disorder, Depression Past Surgical History Past Surgical History: Reports: Orthopedic Surgery, Vascular Surgery - brain angiogram Social History Smoking Status: Current Every Day Smoker Frequency of Alcohol Use: None Hx Recreational Drug Use: No Drugs: Marijuana Hx Prescription Drug Abuse: No - Advance Directive Resuscitation Status: Full Code Family History Family History: Arthritis, CVA, Hypertension, Malignancy Parental Family History Reviewed: No - Noncontributory Children Family History Reviewed: No - Noncontributory Sibling(s) Family History Reviewed.: No - Noncontributory Medication/Allergy Home Medications: Alprazolam [Xanax] 2 mg PO Q12HP PRN 01/06/18 Naproxen [Naprosyn] 500 mg PO Q12HP PRN 01/06/18 Pregabalin [Lyrica] 150 mg PO Q12 01/06/18 Sertraline HCl [Zoloft] 200 mg PO DAILY 01/06/18 Allergies/Adverse Reactions: No Known Allergies Allergy (Verified 02/26/17 15:48) Review of Systems All systems: reviewed and no additional remarkable complaints except as stated - 10 point review of systems was conducted with the patient was negative except as noted above Physical Exam Vital Signs: Temp Pulse Resp BP Pulse Ox 98.7 F 78 16 121/53 L 100 01/06/18 16:26 01/06/18 16:26 01/06/18 16:26 01/06/18 16:26 01/06/18 16:26 Intake & Output 01/05/18 01/06/18 01/07/18 06:59 06:59 06:59 Output Total 275 Balance -275 Weight 93.7 kg General appearance: PRESENT: cooperative, disheveled, mild distress, obese Head exam: PRESENT: atraumatic, normocephalic Eye exam: PRESENT: EOMI, PERRLA. ABSENT: nystagmus, scleral icterus Ear exam: PRESENT: normal external ear exam Mouth exam: PRESENT: moist, neck supple Teeth exam: PRESENT: poor dentation Neck exam: PRESENT: full ROM. ABSENT: JVD, lymphadenopathy, meningismus, tenderness Respiratory exam: PRESENT: clear to auscultation shanta, symmetrical, unlabored. ABSENT: accessory muscle use, rales, rhonchi, tachypnea, wheezes Cardiovascular exam: PRESENT: RRR, +S1, +S2. ABSENT: diastolic murmur, systolic murmur Pulses: PRESENT: normal radial pulses, normal dorsalis pedis pul Vascular exam: PRESENT: normal capillary refill GI/Abdominal exam: PRESENT: normal bowel sounds, soft. ABSENT: distended, guarding, rebound, tenderness Extremities exam: ABSENT: clubbing, pedal edema Musculoskeletal exam: PRESENT: normal inspection. ABSENT: deformity Neurological exam: PRESENT: alert, awake, oriented to person, oriented to place , oriented to time, oriented to situation, CN II-XII grossly intact. ABSENT: motor sensory deficit Psychiatric exam: PRESENT: depressed, flat affect Skin exam: PRESENT: dry, warm Results Impressions: Head CTA 01/06/18 09:53 IMPRESSION: NORMAL BRAIN CT WITH AND WITHOUT CONTRAST. NO CTA EVIDENCE OF STENOSIS OR ANEURYSM OF THE [place]. EVIDENCE OF ACUTE STROKE: NO. Assessment & Plan - Diagnosis (1) Intractable headache Qualifiers: Headache type: tension-type Headache chronicity pattern: acute headache Qualified Code(s): G44.201 - Tension-type headache, unspecified, intractable Is this a current diagnosis for this admission?: Yes Plan: Plan for a combination of Toradol, Compazine, and Benadryl as needed until the headache breaks. We will keep her in a low light situation with the door closed. I told her not to watch a TV and not to look at her phone or any sort of tablet or computer screen or screen of any sort. I do not want her reading books or magazines. I want as little stimulation as possible. - Time Time Spent: 50 to 70 Minutes
--- NOTE | 2018-01-06 23:19 | EKG REPORT ---
SEVERITY:- NORMAL ECG - SINUS RHYTHM : Confirmed by: Shahram Casas 06-Jan-2018 23:18:30
[2018-01-07] MEDS ORDERED: (PENDING PHARMACY ID) (Sertraline Hcl [Zoloft] 200 MG) PO SCH (10:00)
== END 2018-01-06 20:01 | disposition left against medical advice (07) ==
LOC: ER 09:02 → EH 13:50 → 5 15:15
PROVIDERS: ADMIT Emergency Medicine; ATTEND Emergency Medicine
DX: R55 Syncope and collapse (principal); G44.201 Tension-type headache, unspecified, intractable; F32.9 Major depressive disorder, single episode, unspecified; Q05.9 Spina bifida, unspecified; F17.200 Nicotine dependence, unspecified, uncomplicated; R11.2 Nausea with vomiting, unspecified; F19.11 Other psychoactive substance abuse, in remission; R45.1 Restlessness and agitation; Z63.4 Disappearance and death of family member; Z98.890 Other specified postprocedural states; Z82.49 Family history of ischemic heart disease and other diseases of the circulatory system; Z79.899 Other long term (current) drug therapy; Z82.3 Family history of stroke; Z86.79 Personal history of other diseases of the circulatory system; F12.10 Cannabis abuse, uncomplicated
CPT/HCPCS: 93005; 99285; 96361; 96374; 96375; 36415; 80307 ×2; 85025; 80053; 84484; 70496; 93010; J3490 ×3; J1885; J2765; J2270; J0780; J2405; J7030; G0378

== ENCOUNTER 2019-08-24 13:37 | Emergency (ER) | payer MEDICAID ==
[2019-08-24] MEDS ORDERED: OXYCODONE-ACETAMINOPHEN 5-325 MG TABLET PO ONE (14:27)
--- NOTE | 2019-08-24 14:30 | ER Document Report ---
ED GI/ - General Chief Complaint: Abdominal Pain Stated Complaint: POSSIBLE HYERNIA Time Seen by Provider: 08/24/19 14:15 Primary Care Provider: LETITIA VELAZQUEZ MD [Primary Care Provider] - Follow up as needed Mode of Arrival: Ambulatory Information source: Patient Notes: Patient states that yesterday her child fainted and so she picked up her 15-year-old child and felt immediate pulling sensation to the right lateral side. Patient states she has had pain in this area before off and on although the pain became worse and constant after picking up her child. Patient does report mild chronic cough. Patient states pain wraps around to right back area. Patient denies any fever, nausea or vomiting. Patient denies any urinary symptoms. Patient is concerned she may have a hernia in this location. TRAVEL OUTSIDE OF THE [place] IN LAST 30 DAYS: No - HPI Patient complains to provider of: Abdominal pain, Flank pain Onset: Yesterday Timing/Duration: Worse Quality of pain: Sharp Pain Level: 5 Location: RUQ, Right flank Vaginal bleeding (Compared to normal period): None Associated symptoms: denies: Fever, Nausea, Urinary hesitancy, Urinary frequency, Urinary retention, Vomiting Exacerbated by: Movement Relieved by: Denies Similar symptoms previously: Yes Recently seen / treated by doctor: No - Related Data Allergies/Adverse Reactions: No Known Allergies Allergy (Verified 08/24/19 16:07) Home Medications: Adderral, Xanax Past Medical History - General Information source: Patient - Social History Smoking Status: Current Every Day Smoker Frequency of alcohol use: None Drug Abuse: None Occupation: None Lives with: Family Family History: Arthritis, CVA, Hypertension, Malignancy Patient has homicidal ideation: No Neurological Medical History: Reports: Hx Cerebrovascular Accident - 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 Denies: Hx Peritoneal Dialysis GI Medical History: Reports: Hx Gastritis, Hx Colonoscopy, Hx Endoscopy Musculoskeletal Medical History: Reports Hx Musculoskeletal Deformity, Reports Hx Musculoskeletal Trauma Psychiatric Medical History: Reports: Hx Anxiety, Hx Attention Deficit Hyperactivity Disorder, Hx Bipolar Disorder, Hx Depression, Hx Obsessive Compulsive Disorder Traumatic Medical History: Reports: Hx Fractures - Right arm Past Surgical History: Reports: Hx Orthopedic Surgery, Hx Vascular Surgery - brain angiogram - Immunizations Immunizations up to date: Yes Hx Diphtheria, Pertussis, Tetanus Vaccination: Yes - 2013 Review of Systems - Review of Systems Constitutional: No symptoms reported. denies: Fever, Recent illness EENT: No symptoms reported Cardiovascular: Chest pain - Right lateral rib tenderness Respiratory: Cough. denies: Short of breath Gastrointestinal: Abdominal pain - Right upper quadrant tenderness. denies: Vomiting Genitourinary: Flank pain Female Genitourinary: No symptoms reported Musculoskeletal: Back pain Skin: No symptoms reported Hematologic/Lymphatic: No symptoms reported Neurological/Psychological: No symptoms reported Physical Exam - Vital signs Vitals: Temp Pulse Resp BP Pulse Ox 98.1 F 97 20 150/87 H 98 08/24/19 13:49 08/24/19 13:49 08/24/19 13:49 08/24/19 13:49 08/24/19 13:49 - General General appearance: Appears well, Alert, Anxious In distress: None - HEENT Head: Normocephalic, Atraumatic Eyes: Normal Conjunctiva: Normal Nasal: Normal Mouth/Lips: Normal Mucous membranes: Normal Neck: Normal, Supple. No: Lymphadenopathy - Respiratory Respiratory status: No respiratory distress Chest status: Nontender Breath sounds: Nonproductive cough. No: Rales, Rhonchi, Stridor, Wheezing Chest palpation: Normal - Cardiovascular Rhythm: Regular Heart sounds: S1 appreciated, S2 appreciated - Abdominal Inspection: Morbidly Obese Distension: No distension Bowel sounds: Normal Tenderness: Tender - RUQ Organomegaly: No organomegaly - Back Back: CVA tenderness - Extremities General upper extremity: Normal inspection, Normal ROM General lower extremity: Normal inspection, Normal ROM - Neurological Neuro grossly intact: Yes Cognition: Normal [place] Coma Scale Eye Opening: Spontaneous [place] Coma Scale Verbal: Oriented [place] Coma Scale Motor: Obeys Commands [place] Coma Scale Total: 15 - Psychological Associated symptoms: Anxious, Tearful - Skin Skin Temperature: Warm Skin Moisture: Dry Skin Color: Normal Course - Re-evaluation Re-evalutation: 08/24/19 16:10 Patient without any evidence of UTI, pneumonia or pneumothorax. No evidence of biliary obstruction at this time. Patient does have reproducible right lateral rib and right upper quadrant tenderness worse with movement of her torso and palpation. Suspect likely muscle strain from the lifting of her child yesterday. Will treat symptomatically and encourage outpatient follow-up with her primary doctor for recheck. - Vital Signs Vital signs: Temp Pulse Resp BP Pulse Ox 98.0 F 86 20 152/96 H 93 08/24/19 16:46 08/24/19 16:45 08/24/19 13:49 08/24/19 16:45 08/24/19 16:45 - Laboratory Result Diagrams: 08/24/19 14:30 08/24/19 14:30 Laboratory results interpreted by me: 08/24/19 08/24/19 14:30 14:30 Hgb 15.7 H RDW 15.1 H Sodium 135.4 L AST 43 H ALT 47 H Total Protein 8.9 H Labs- All tests 24 hr 08/24/19 08/24/19 08/24/19 14:30 14:30 15:28 WBC 8.8 RBC 5.03 Hgb 15.7 H Hct 45.0 MCV 90 MCH 31.2 MCHC 34.8 RDW 15.1 H Plt Count 280 Lymph % (Auto) 19.4 [place] % (Auto) 6.0 Eos % (Auto) 1.2 Baso % (Auto) 0.3 Absolute Neuts (auto) 6.4 Absolute Lymphs (auto) 1.7 Absolute Monos (auto) 0.5 Absolute Eos (auto) 0.1 Absolute Basos (auto) 0.0 Seg Neutrophils % 73.1 Sodium 135.4 L Potassium 5.0 Chloride 103 Carbon Dioxide 24 Anion Gap 8 BUN 16 Creatinine 0.56 Est GFR ( Amer) > 60 Est GFR (MDRD) Non-Af > 60 Glucose 104 Calcium 9.3 Total Bilirubin 0.6 Direct Bilirubin 0.1 Neonat Total Bilirubin Not Reportable Neonat Direct Bilirubin Not Reportable Neonat Indirect Bili Not Reportable AST 43 H ALT 47 H Alkaline Phosphatase 110 Total Protein 8.9 H Albumin 4.8 Lipase 59.7 Urine Color YELLOW Urine Appearance CLEAR Urine pH 6.0 Ur Specific [place] 1.020 Urine Protein NEGATIVE Urine Glucose (UA) NEGATIVE Urine Ketones NEGATIVE Urine Blood NEGATIVE Urine Nitrite NEGATIVE Urine Bilirubin NEGATIVE Urine Urobilinogen NEGATIVE Ur Leukocyte Esterase NEGATIVE Urine WBC (Auto) 0 Urine RBC (Auto) 1 Urine Bacteria (Auto) TRACE Squamous Epi Cells Auto 1 Urine Mucus (Auto) RARE Urine Ascorbic Acid NEGATIVE - Diagnostic Test Radiology reviewed: Reports reviewed Discharge - Discharge Clinical Impression: Right-sided chest wall pain Condition: Stable Disposition: HOME, SELF-CARE Instructions: Anti-Inflammatory Medication ([facility]), Chest Wall Pain ([facility]), Oral Narcotic Medication ([facility]) Additional Instructions: Return immediately for any new or worsening symptoms Followup with your primary care provider, call tomorrow to make a followup appointment Do not take the pain medication if you are taking your Xanax, take only 1 medication of the other to avoid adverse interactions Prescriptions: Lidocaine [Lidoderm 5% (700 mg) Transdermal Patch] 1 patch TP DAILY PRN #10 adh..patch PRN Reason: Naproxen [Naprosyn 250 Nmg Tablet] 1 tab PO BID #14 tablet Oxycodone HCl/Acetaminophen [Percocet 5-325 mg Tablet] 1 tab PO ASDIR PRN #8 tablet PRN Reason: Referrals: LETITIA VELAZQUEZ MD [Primary Care Provider] - Follow up as needed
[2019-08-24 14:53] LABS: ABSOLUTE EOSINOPHILS # (AUTO) 0.1 10^3/uL (0.0-0.6); ABSOLUTE LYMPHOCYTES (AUTO) 1.7 10^3/uL (0.5-4.7); ABSOLUTE MONOCYTES (AUTO) 0.5 10^3/uL (0.1-1.4); ABSOLUTE NEUT (AUTO) 6.4 10^3/uL (1.7-8.2); BASOPHILS % (AUTO) 0.3 % (0-2); EOSINOPHILS % (AUTO) 1.2 % (0-6); HEMOGLOBIN 15.7 g/dL (12.0-15.5); LYMPHOCYTES % (AUTO) 19.4 % (13-45); MEAN CORPUSCULAR HEMOGLOBIN 31.2 pg (27.0-33.4); MEAN CORPUSCULAR HGB CONC 34.8 g/dL (32.0-36.0); MEAN CORPUSCULAR VOLUME 90 fl (80-97); PLATELET COUNT 280 10^3/uL (150-450); RED BLOOD COUNT 5.03 10^6/uL (3.72-5.28); RED CELL DISTRIBUTION WIDTH 15.1 % (11.5-14.0); SEGMENTED NEUTROPHILS % (AUTO) 73.1 % (42-78); TOTAL CELLS COUNTED % (AUTO) 100 %; WHITE BLOOD COUNT 8.8 10^3/uL (4.0-10.5)
[2019-08-24 15:11] LABS: ALBUMIN 4.8 g/dL (3.5-5.0); ALKALINE PHOSPHATASE 110 U/L (38-126); ANION GAP 8 (5-19); ASPARTATE AMINO TRANSFERASE 43 U/L (14-36); BILIRUBIN,DIRECT 0.1 mg/dL (0.0-0.4); BILIRUBIN,TOTAL 0.6 mg/dL (0.2-1.3); BLOOD UREA NITROGEN 16 mg/dL (7-20); CALCIUM 9.3 mg/dL (8.4-10.2); CARBON DIOXIDE 24 mmol/L (22-30); CHLORIDE 103 mmol/L (98-107); GLUCOSE 104 mg/dL (75-110); TOTAL PROTEIN 8.9 g/dL (6.3-8.2)
--- NOTE | 2019-08-24 15:33 | RADIOLOGY REPORT (SQ) ---
EXAM DESCRIPTION: CHEST 2 VIEWS IMAGES COMPLETED DATE/TIME: 08/24/2019 3:25 pm REASON FOR STUDY: cough, RUQ, r flank pain COMPARISON: PA and lateral views of the chest from 02/26/2017. EXAM PARAMETERS: NUMBER OF VIEWS: Two views. TECHNIQUE: PA and lateral views of the chest were obtained. RADIATION DOSE: NA LIMITATIONS: None. FINDINGS: LUNGS AND PLEURA: No consolidation, pleural effusion or pneumothorax. MEDIASTINUM AND HILAR STRUCTURES: No mediastinal or hilar contour abnormality. HEART AND VASCULAR STRUCTURES: The cardiac silhouette and pulmonary vasculature are within normal burns its. BONES: No acute findings. HARDWARE: None in the chest. OTHER: No other finding. IMPRESSION: No acute cardiopulmonary process. TECHNICAL DOCUMENTATION: JOB ID: [id number] 2010 [employer]- All Rights Reserved Reading location - IP/workstation name: [email or web address]
[2019-08-24 15:44] LABS: APPEARANCE,URINE CLEAR; BILIRUBIN,URINE NEGATIVE (NEGATIVE); COLOR,URINE YELLOW; GLUCOSE, URINE NEGATIVE (NEGATIVE); KETONES,URINE NEGATIVE (NEGATIVE); LEUKOCYTE ESTERASE,URINE NEGATIVE (NEGATIVE); NITRITE,URINE NEGATIVE (NEGATIVE); PROTEIN,URINE NEGATIVE (NEGATIVE); UROBILINOGEN,URINE NEGATIVE mg/dL (<2.0)
--- NOTE | 2019-08-24 15:45 | RADIOLOGY REPORT (SQ) ---
EXAM DESCRIPTION: U/S ABDOMEN LIMITED W/O DOP IMAGES COMPLETED DATE/TIME: 08/24/2019 3:28 pm REASON FOR STUDY: RUQ pain COMPARISON: None. TECHNIQUE: Dynamic and static grayscale images acquired of the abdomen and recorded on PACS. Additio nal selected color Doppler and spectral images recorded. LIMITATIONS: The examination is limited due to the patient's body habitus. FINDINGS: PANCREAS: The body of the pancreas are normal echogenicity. The tail is suboptimally vis ualized due to overlying bowel gas. LIVER: Fatty liver suggested. Suboptimal visualization of the liver. The liver measures 18.2 cm in length, hepatomegaly. LIVER VASCULATURE: Normal directional flow of the main portal vein and hepatic veins. GALLBLADDER: No stones. The gallbladder wall measures 2.7 mm, normal wall thickness. No pericholecys tic fluid. ULTRASOUND-DETECTED MILLER'S SIGN: Negative. INTRAHEPATIC DUCTS AND COMMON DUCT: CBD measures 2.7 mm in diameter, normal. The intrahepatic ducts normal caliber. No filling defects. INFERIOR VENA CAVA: Normal flow. AORTA: No aneurysm. RIGHT KIDNEY: The right kidney measures 9.0 cm x 4.8 cm x 4.6 cm, normal size. Normal echogenicity. No solid or suspicious masses. No hydronephrosis. No calcifications. PERITONEAL AND RIGHT PLEURAL SPACE: No ascites or effusions. OTHER: No other significant findings. IMPRESSION: 1. The examination is limited due to the patient's body habitus. 2. Fatty liver. hepatomegaly. 3. The tail of the pancreas is obscured by overlying bowel gas. TECHNICAL DOCUMENTATION: JOB ID: [id number] 2010 [employer]- All Rights Reserved Reading location - IP/workstation name: [email or web address]
[2019-08-24] MEDS ORDERED: MORPHINE SULFATE 10 MG/ML INJ IV ONE (16:09)
[2019-08-24] MEDS ORDERED: LIDOCAINE 5% (700 MG) TRANSDERMAL ADH..PATCH TP ONE (16:09)
[2019-08-24 16:46] VITALS: BP 152/96
== END 2019-08-24 16:46 | disposition home or self-care (01) ==
LOC: ER 13:37
DX: R07.89 Other chest pain (principal); R10.9 Unspecified abdominal pain; M54.9 Dorsalgia, unspecified; R10.11 Right upper quadrant pain; X50.0XXA Overexertion from strenuous movement or load, initial encounter; Y93.89 Activity, other specified; R10.811 Right upper quadrant abdominal tenderness; R05 Cough; K76.0 Fatty (change of) liver, not elsewhere classified; F41.9 Anxiety disorder, unspecified; F90.9 Attention-deficit hyperactivity disorder, unspecified type; Z79.899 Other long term (current) drug therapy; F17.200 Nicotine dependence, unspecified, uncomplicated
CPT/HCPCS: 99284; 96374; 36415; 83690; 85025; 80053; 81001; 71046; 76705; J2270; J3490

== ENCOUNTER 2019-12-10 14:18 | Emergency (ER) | payer MEDICAID ==
[2019-12-10] MEDS ORDERED: CLINDAMYCIN 600 MG/D5W RTU 600 MG/50 ML RTUPB IV ONE ×2 (14:47→18:58)
[2019-12-10] MEDS ORDERED: DEXAMETHASONE SOD PHOS INJ 10 MG/1 ML VIAL IV ONE ×2 (14:47→17:28)
[2019-12-10] MEDS ORDERED: KETOROLAC TROMETHAMINE INJ/PF 30 MG/1 ML SDV IV ONE ×2 (14:47→17:28)
--- NOTE | 2019-12-10 14:50 | ER Document Report ---
ED Medical Screen (RME) - General Chief Complaint: Facial Swelling Stated Complaint: TOOTHACE/JAW SWELLING Time Seen by Provider: 12/10/19 14:39 Primary Care Provider: LETITIA VELAZQUEZ MD [Primary Care Provider] - Follow up as needed TRAVEL OUTSIDE OF THE [place] IN LAST 30 DAYS: No - HPI Notes: 12/10/19 14:48 39-year-old female to the emergency department with complaints of left upper jaw pain, cheek pain, around the eye pain with significant swelling. She states last night she had a tooth break. She spit out several pieces of it but this morning awoke with her eyes swollen shut because her cheek was so swollen. She states she has significant pain and cannot completely open her mouth. She says she is having a little bit of drooling as well. No fevers or chills. She does have a plan to have all of her teeth removed and get dentures in the next month but when she saw her symptoms this morning she got very concerned. She is a smoker. On brief medical screening exam patient has significant maxillary edema and tenderness to palpation that extends up and underneath the left eye. She does not seem to have pain with eye movement. She is very tender to palpation of the gum in the left upper teeth. She has significantly severe dental caries throughout. She does not have Aaron's angina. I performed a brief medical screening exam on the patient determined that the patient needs further evaluation and management by main side provider. I have placed initial orders to help expedite care. - Related Data Allergies/Adverse Reactions: No Known Allergies Allergy (Verified 08/24/19 16:07) Past Medical History - Social History Frequency of alcohol use: Occasional Neurological Medical History: Reports: Hx Cerebrovascular Accident - 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 Denies: Hx Peritoneal Dialysis GI Medical History: Reports: Hx Cirrhosis, Hx Gastritis, Hx Colonoscopy, Hx Endoscopy Musculoskeltal Medical History: Reports Hx Musculoskeletal Deformity, Reports Hx Musculoskeletal Trauma Psychiatric Medical History: Reports: Hx Anxiety, Hx Attention Deficit Hyperactivity Disorder, Hx Bipolar Disorder, Hx Depression, Hx Obsessive Compulsive Disorder Traumatic Medical History: Reports: Hx Fractures - Right arm Past Surgical History: Reports: Hx Orthopedic Surgery, Hx Vascular Surgery - brain angiogram - Immunizations Immunizations up to date: Yes Hx Diphtheria, Pertussis, Tetanus Vaccination: Yes - 2013 Physical Exam - Vital signs Vitals: Temp Pulse Resp BP Pulse Ox 98.1 F 104 H 18 159/100 H 97 12/10/19 14:12/10/19 14:12/10/19 14:12/10/19 14:12/10/19 14:23 Course - Vital Signs Vital signs: Temp Pulse Resp BP Pulse Ox 98.1 F 104 H 18 159/100 H 97 12/10/19 14:23 12/10/19 14:12/10/19 14:23 12/10/19 14:23 12/10/19 14:23 Doctor's Discharge - Discharge Referrals: LETITIA VELAZQUEZ MD [Primary Care Provider] - Follow up as needed
[2019-12-10 15:36] LABS: ABSOLUTE BASOPHILS # (AUTO) 0.1 10^3/uL (0.0-0.2); ABSOLUTE EOSINOPHILS # (AUTO) 0.1 10^3/uL (0.0-0.6); ABSOLUTE LYMPHOCYTES (AUTO) 1.4 10^3/uL (0.5-4.7); ABSOLUTE MONOCYTES (AUTO) 0.8 10^3/uL (0.1-1.4); ABSOLUTE NEUT (AUTO) 7.4 10^3/uL (1.7-8.2); BASOPHILS % (AUTO) 1.3 % (0-2); EOSINOPHILS % (AUTO) 1.3 % (0-6); HEMATOCRIT 46.1 % (36.0-47.0); HEMOGLOBIN 15.8 g/dL (12.0-15.5); LYMPHOCYTES % (AUTO) 13.9 % (13-45); MEAN CORPUSCULAR HEMOGLOBIN 31.6 pg (27.0-33.4); MEAN CORPUSCULAR HGB CONC 34.3 g/dL (32.0-36.0); MEAN CORPUSCULAR VOLUME 92 fl (80-97); MONOCYTES % (AUTO) 8.2 % (3-13); PLATELET COUNT 256 10^3/uL (150-450); RED BLOOD COUNT 5.01 10^6/uL (3.72-5.28); RED CELL DISTRIBUTION WIDTH 14.1 % (11.5-14.0); SEGMENTED NEUTROPHILS % (AUTO) 75.3 % (42-78); TOTAL CELLS COUNTED % (AUTO) 100 %; WHITE BLOOD COUNT 9.9 10^3/uL (4.0-10.5)
[2019-12-10 15:44] LABS: ALBUMIN 4.8 g/dL (3.5-5.0); ALKALINE PHOSPHATASE 102 U/L (38-126); ANION GAP 9 (5-19); ASPARTATE AMINO TRANSFERASE 41 U/L (14-36); BILIRUBIN,DIRECT 0.3 mg/dL (0.0-0.4); BILIRUBIN,TOTAL 0.4 mg/dL (0.2-1.3); BLOOD UREA NITROGEN 8 mg/dL (7-20); CALCIUM 9.4 mg/dL (8.4-10.2); CARBON DIOXIDE 23 mmol/L (22-30); CHLORIDE 105 mmol/L (98-107); GLUCOSE 103 mg/dL (75-110); POTASSIUM 4.7 mmol/L (3.6-5.0); TOTAL PROTEIN 8.6 g/dL (6.3-8.2)
--- NOTE | 2019-12-10 18:11 | RADIOLOGY REPORT (SQ) ---
EXAM DESCRIPTION: CT FACIAL AREA WITH IMAGES COMPLETED DATE/TIME: 12/10/2019 5:59 pm REASON FOR STUDY: facial swelling, cheek pain, trismus COMPARISON: None. TECHNIQUE: Post contrast images through the facial bones and orbits windowed for bone and soft tissu e. Additional coronal and sagittal reconstructed images reviewed. All images stored on PACS. All CT scanners at this facility use dose modulation, iterative reconstruction, and/or weight based d osing when appropriate to reduce radiation dose to as low as reasonably achievable (ALARA). [facility]: Dose Right [facility]: CareDose [facility]: Dose Right [facility]: Teradose 4D [facility]: G-volution CONTRAST TYPE AND DOSE: contrast/concentration: Isovue 350.00 mmol/ml; Total Contrast Delivered: 69. 9 ml; Total Saline Delivered: 55.0 ml RENAL FUNCTION: BUN 8 creatinine 0.62 RADIATION DOSE: CT Rad equipment meets quality standard of care and radiation dose reduction techniq ues were employed. CTDIvol: 30.4 mGy. DLP: 557 mGy-cm. . LIMITATIONS: None. FINDINGS: FACIAL BONES: No fracture or bone lesion. ORBITS: Intact. No fracture. Symmetric intact globes and retroorbital soft tissues. PARANASAL SINUSES: Clear. No significant mucosal thickening, mass or fluid. No nasal polyps. Maxilla ry sinus outlets are patent. SOFT TISSUES: There is soft tissue swelling the left cheek with stranding in the subcutaneous fat. N o fluid collection is seen. INFERIOR BRAIN: Limited view. No acute findings. OTHER: There is submandibular adenopathy. IMPRESSION: Soft tissue swelling the left cheek. No abscess. No facial fractures. Submandibular l ymph nodes are seen bilaterally. TECHNICAL DOCUMENTATION: JOB ID: [id number] Quality ID # [id number]: Final reports with documentation of one or more dose reduction techniques (e.g., Au tomated exposure control, adjustment of the mA and/or kV according to patient size, use of iterative reconstruction technique) 2010 [employer]- All Rights Reserved Reading location - IP/workstation name: [email or web address]
--- NOTE | 2019-12-10 19:34 | ER Document Report ---
ED Oral Problem - General Chief Complaint: Facial Swelling Stated Complaint: TOOTHACE/JAW SWELLING Time Seen by Provider: 12/10/19 14:39 Primary Care Provider: LETITIA VELAZQUEZ MD [Primary Care Provider] - Follow up tomorrow TRAVEL OUTSIDE OF THE [place] IN LAST 30 DAYS: No - HPI Notes: 39-year-old female, here with left-sided facial swelling that began this morning associated left upper dental pain. She states that last night she had a tooth break. She states she still of the fragments and took some [id number] medicine for pain. However, when she woke up this morning her eye was nearly swollen shut due to swelling to her left cheek. Fevers or chills. She states she has difficulty with opening her mouth. She states she feels like she is drooling all over. She denies any chest pain, shortness of breath, difficulty swallowing. She states that she has been dizziness attempted to call them today but was not able to reach them. She states she has a plan to have all of her teeth removed that she kept dentures because her teeth" 2A. She is a smoker. - Related Data Allergies/Adverse Reactions: No Known Allergies Allergy (Verified 08/24/19 16:07) Past Medical History - General Information source: Patient - Social History Smoking Status: Current Every Day Smoker Frequency of alcohol use: Occasional Drug Abuse: None Family History: Arthritis, CVA, Hypertension, Malignancy Neurological Medical History: Reports: Hx Cerebrovascular Accident - 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 Denies: Hx Peritoneal Dialysis GI Medical History: Reports: Hx Cirrhosis, Hx Gastritis, Hx Colonoscopy, Hx Endoscopy Musculoskeletal Medical History: Reports Hx Musculoskeletal Deformity, Reports Hx Musculoskeletal Trauma Psychiatric Medical History: Reports: Hx Anxiety, Hx Attention Deficit Hyperactivity Disorder, Hx Bipolar Disorder, Hx Depression, Hx Obsessive Compulsive Disorder Traumatic Medical History: Reports: Hx Fractures - Right arm Past Surgical History: Reports: Hx Orthopedic Surgery, Hx Vascular Surgery - brain angiogram - Immunizations Immunizations up to date: Yes Hx Diphtheria, Pertussis, Tetanus Vaccination: Yes - 2013 Review of Systems - Review of Systems Constitutional: denies: Chills, Fever EENT: Dental problem, Other - Facial swelling Cardiovascular: denies: Chest pain, Palpitations, Dyspnea, Syncope, Dizziness, Lightheaded Respiratory: denies: Cough, Short of breath, Wheezing Gastrointestinal: denies: Abdominal pain, Diarrhea, Nausea, Vomiting Musculoskeletal: No symptoms reported Skin: No symptoms reported Hematologic/Lymphatic: No symptoms reported Neurological/Psychological: No symptoms reported -: Yes All other systems reviewed and negative Physical Exam - Vital signs Vitals: Temp Pulse Resp BP Pulse Ox 98.1 F 104 H 18 159/100 H 97 12/10/19 14:23 12/10/19 14:23 12/10/19 14:23 12/10/19 14:23 12/10/19 14:23 Interpretation: Normal - General General appearance: Appears well, Alert In distress: Moderate Notes: Moderate pain distress. Patient is tearful - HEENT Head: Normocephalic, Atraumatic Eyes: Normal Conjunctiva: Normal Pupils: PERRL Mouth/Lips: Caries - Severe dental hygiene with multiple dental caries and dent al. Fracture is down to the gumline. She has a lot of tenderness to palpation to the left upper gum. There is edema to the upper gums but no leonid fluctuant abscess is appreciated. There is no Aaron's angina. Patient does have trismus. Her airway is grossly patent. No evidence for peritonsillar abscess. There is associated significant maxillary edema with tenderness to palpation on the left side of the face. No: Angioedema Pharynx: No: Erythema, Exudate, Peritonsillar abscess Neck: Normal, Supple - Respiratory Respiratory status: No respiratory distress Chest status: Nontender Breath sounds: Normal Chest palpation: Normal - Cardiovascular Rhythm: Regular Heart sounds: Normal auscultation Murmur: No - Abdominal Inspection: Normal Distension: No distension Bowel sounds: Normal Tenderness: Nontender Organomegaly: No organomegaly - Neurological Neuro grossly intact: Yes Cognition: Normal Orientation: AAOx4 Karime Coma Scale Eye Opening: Spontaneous [place] Coma Scale Verbal: Oriented [place] Coma Scale Motor: Obeys Commands Kar[place] Coma Scale Total: 15 Speech: Normal Motor strength normal: LUE, RUE, LLE, RLE Sensory: Normal - Psychological Associated symptoms: Normal affect, Normal mood - Skin Skin Temperature: Warm Skin Moisture: Dry Skin Color: Normal Course - Re-evaluation Re-evalutation: Impression: Left-sided maxillary cellulitis. CT confirms that there is no leonid abscess. Patient with mildly elevated white blood count. She is feeling better after steroids and Toradol. She was also given clindamycin. Start her on at home clindamycin. At one point during her visit she did get confused about her discharge and briefly left the department. However she was called and she came immediately back and had her clindamycin. She declines any pain medicine because she is in pain management. Encouraged her to return if she has any worsening symptoms. She is to call her dentist tomorrow. She agrees with plan - Vital Signs Vital signs: Temp Pulse Resp BP Pulse Ox 98.2 F 81 20 131/85 H 96 12/10/19 20:35 12/10/19 20:35 12/10/19 20:35 12/10/19 20:35 12/10/19 20:35 - Laboratory Result Diagrams: 12/10/19 15:05 12/10/19 15:05 Laboratory results interpreted by me: 12/10/19 12/10/19 15:05 15:05 Hgb 15.8 H RDW 14.1 H AST 41 H ALT 51 H Total Protein 8.6 H Laboratory 12/10/19 12/10/19 15:05 15:05 WBC 9.9 RBC 5.01 Hgb 15.8 H Hct 46.1 MCV 92 MCH 31.6 MCHC 34.3 RDW 14.1 H Plt Count 256 Lymph % (Auto) 13.9 [place] % (Auto) 8.2 Eos % (Auto) 1.3 Baso % (Auto) 1.3 Absolute Neuts (auto) 7.4 Absolute Lymphs (auto) 1.4 Absolute Monos (auto) 0.8 Absolute Eos (auto) 0.1 Absolute Basos (auto) 0.1 Seg Neutrophils % 75.3 Sodium 137.4 Potassium 4.7 Chloride 105 Carbon Dioxide 23 Anion Gap 9 BUN 8 Creatinine 0.62 Est GFR ( Amer) > 60 Est GFR (MDRD) Non-Af > 60 Glucose 103 Calcium 9.4 Total Bilirubin 0.4 Direct Bilirubin 0.3 Neonat Total Bilirubin Not Reportable Neonat Direct Bilirubin Not Reportable Neonat Indirect Bili Not Reportable AST 41 H ALT 51 H Alkaline Phosphatase 102 Total Protein 8.6 H Albumin 4.[address] 12/10/19 14:45 IMPRESSION: Soft tissue swelling the left cheek. No abscess. No facial fractures. Submandibular lymph nodes are seen bilaterally. - Diagnostic Test Radiology reviewed: Image reviewed, Reports reviewed Discharge - Discharge Clinical Impression: Facial swelling, Facial cellulitis, Dental caries Condition: Stable Disposition: HOME, SELF-CARE Instructions: Cellulitis ([facility]), Clindamycin ([facility]), Toothache ([facility]) Additional Instructions: COMPLETE ALL ANTIBIOTICS. FOLLOW UP WITH YOUR PRIMARY CARE AND DENTIST WITHOUT FAIL BY SATURDAY. RETURN HERE IF WORSENING SWELLING, DIFFICULTY BREATHING, OR ANY OTHER CONCERNS. Prescriptions: Clindamycin HCl 300 mg PO QID #40 capsule Referrals: LETITIA VELAZQUEZ MD [Primary Care Provider] - Follow up tomorrow
[2019-12-10 20:41] VITALS: BP 131/85
== END 2019-12-10 20:41 | disposition home or self-care (01) ==
LOC: ER 14:18
DX: K02.9 Dental caries, unspecified (principal); R22.0 Localized swelling, mass and lump, head; K08.89 Other specified disorders of teeth and supporting structures; F17.200 Nicotine dependence, unspecified, uncomplicated; L03.211 Cellulitis of face
CPT/HCPCS: 99285; 96375; 96365; 96367; 36415; 85025; 80053; 70487; S0077; J1885; J1100